=== PATIENT | female | born 1965 | race Two or more races ===

== ENCOUNTER 2024-03-03 16:35 | Emergency (ER) | payer MEDICAID, SELFPAY ==
[2024-03-03 16:36] VITALS: BMI 26.2
[2024-03-03 16:41] VITALS: BP 128/69; PULSE 77; RESP 18; TEMP 36.8; O2SAT 98
--- NOTE | 2024-03-03 16:49 | XR_ITS ---
Examination: PA lateral chest 2 views Technique: Upright PA and lateral chest 2 views Standing time: March 03, 2024 1659 hrs. Comparison February 07, 2023 Indications: Chest pain beginning today. Findings: Normal heart size No current pneumonia or pulmonary edema Stable calcified granuloma in the right upper lobe. Osseous structures are intact Impression: No current pneumonia or pulmonary edema
--- NOTE | 2024-03-03 16:49 | XR_ITS ---
Examination: CT brain head without contrast. 2-D sagittal coronal reconstructions Date and time of exam:March 03, 2024 7005 hours Indications: Onset headaches and dizziness difficulty breathing beginning yesterday. CTDI: vol (mGy):44.9 DLP: (mGycm):796 Technique: Multiple CT axial sections of the brain have been obtained, 5 mm slice thickness. Contrast has not been administered. 2-D sagittal, coronal reconstructions have been obtained Low dose protocols were performed. One or more of the following dose reduction techniques were used; automated exposure control, adjustment of the mA and/or KV according to patient size, use of iterative reconstruction technique. Findings: No significant ventricular enlargement. Intra-axial or extra-axial hemorrhage density is not seen. No mass effect or midline shift Basal cisterns are not remarkable. Fourth ventricle is midline. Cranial vault intact. Impression: Negative for acute hemorrhage, mass effect or midline shift Advise clinical correlation and follow up accordingly.
--- NOTE | 2024-03-03 16:49 | EKG_ITS ---
[facility] Test Date: 2024-03-03 Pat Name: YAJAIRA PATEL Department: Room: - Gender: Female Chief Scientist: : [id number] Requested By: Vic Mark (MARCELA) Order Number: [id number] Reading MD: Vic Mark (WOOD BARKER) Measurements Intervals [place] Rate: 65 P: 17 RI: 120 QRS: -5 QRSD: 88 T: -9 QT: 359 QTc: 374 Interpretive Statements SINUS RHYTHM LOW QRS VOLTAGE IN PRECORDIAL LEADS [QRS DEFLECTION < 1.0 mV IN CHEST LEADS] Compared to ECG 09/16/2021 11:09:16 T-wave abnormality no longer present /store/S0/[id number].pdf
--- NOTE | 2024-03-03 16:50 | PD.EDRME ---
Rapid Medical Screening Exam RME Arrival date/time: 03/03/24 16:35 59-year-old female presents to the emergency department complains of headache and dizziness shortness of breath and back pain Chief Complaint: Shortness of Breath/Dyspnea Time Seen by Provider: 03/03/24 16:47 Vital signs: Vital Signs Temperature 98.2 F 03/03/24 16:41 Pulse Rate 77 03/03/24 16:41 Respiratory Rate 18 03/03/24 16:41 Blood Pressure 128/69 03/03/24 16:41 Pulse Oximetry (%) 98 03/03/24 16:41 Oxygen Delivery Method Room Air 03/03/24 16:41
[2024-03-03 17:16] LABS: Collection Type, Urine Clean Catch
[2024-03-03 17:20] LABS: Basophils # (Auto) 0.1 Thou/mm3 (0.0-0.2); Basophils % (Auto) 1 % (0-2.5); Eosinophils # (Auto) 0.4 Thou/mm3 (0.0-0.5); Eosinophils % (Auto) 5 % (0-10); Hematocrit 44.6 % (36.0-46.0); Hemoglobin 14.8 g/dL (12.0-16.0); Immature Granulocytes % (Auto) 0 % (0-0); Immature Granulocytes Auto 0.02 Thou/mm3 (0.00-0.00); Lymphocytes # (Auto) 2.7 Thou/mm3 (1.0-4.8); Lymphocytes % (Auto) 33 % (10-50); Mean Corpuscular HGB Conc 33.2 g/dl (31.0-37.0); Mean Corpuscular Hemoglobin 29.7 pg (25.0-35.0); Mean Corpuscular Volume 89 fL (80-100); Monocytes # (Auto) 0.6 Thou/mm3 (0.0-0.8); Monocytes % (Auto) 7 % (0-12); Neutrophils # (Auto) 4.4 Thou/mm3 (1.8-7.7); Neutrophils % (Auto) 54 % (37-80); Nucleated Red Blood Cell % 0 /100 WBC (0); Platelet Count 228 Thou/mm3 (140-440); RDW Standard Deviation 43.9 fL (36.4-46.3); Red Blood Count 4.99 Miln/mm3 (4.00-5.20); White Blood Count 8.2 Thou/mm3 (3.6-11.0)
[2024-03-03 17:24] LABS: Bilirubin,Urine Negative (Negative); Blood,Urine Negative (Negative); Clarity,Urine Clear (Clear/Hazy); Color,Urine Lt-Yellow (Lt Yel-Yel); Glucose, Urine Negative (Negative); Ketones,Urine Negative (Negative); Leukocyte Esterase,Urine Positive (Negative); Nitrite,Urine Negative (Negative); Protein,Urine Trace (Neg - Trace); RBC,Urine 3 /hpf (0-3); Squamous Epithelial Cell,Urine 5 /hpf (0-5); Urobilinogen,Urine Negative mg/dL (0.0-1.0); WBC,Urine 8 /hpf (0-5)
[2024-03-03 17:31] LABS: Amphetamine/Methamp Scrn,U Negative (Negative); Barbiturate Screen,Urine Negative (Negative); Benzodiazepines Screen,Urine Negative (Negative); Benzoylecgonine Screen, Ur Negative (Negative); Fentanyl Screen,Urine Negative (Negative); Opiate Screen,Urine Negative (Negative); THC Screen,Urine Negative (Negative)
[2024-03-03 17:41] LABS: B-Type Natriuretic Peptide < 20 pg/mL (0-100)
[2024-03-03 17:46] LABS: Alanine Aminotransferase 15 U/L (10-49); Albumin, Serum 4.7 gm/dL (3.5-5.0); Albumin/Globulin Ratio 1.7 (1.2-2.2); Alkaline Phosphatase 101 U/L (46-116); Anion Gap 5 (7-16); Aspartate Amino Transferase < 8 U/L (0-34); BUN/Creatinine Ratio 21 Ratio (12-20); Bilirubin,Total 0.5 mg/dL (0.3-1.2); Blood Urea Nitrogen 19 mg/dL (9-23); Calcium 9.5 mg/dL (8.3-10.6); Calcium (Corrected) 9.5 mg/dL (8.5-10.1); Carbon Dioxide 31.7 mMol/L (20.0-31.0); Chloride 103 mMol/L (98-107); Creatinine (Component) 0.9 mg/dL (0.6-1.3); Estimated Creatinine Clearance 53.9 mL/min (>60); Globulin 2.8 gm/dL (2.3-3.5); Glucose 89 mg/dL (74-106); Osmolality,Calculated 280 (275-295); Potassium 4.6 mMol/L (3.4-5.1); Sodium 140 mMol/L (136-145); Total Protein 7.5 gm/dL (5.7-8.2); Troponin I < 0.002 ng/mL (0.0-0.045); eGFR > 60 See Note
[2024-03-03 18:11] VITALS: BP 116/74; PULSE 64; RESP 18; TEMP 36.6; O2SAT 100
--- NOTE | 2024-03-03 18:31 | PD.EDSOB ---
ED SOB =RME/HPI General Chief Complaint: Shortness of Breath/Dyspnea Stated Complaint: DIFF BREATHING SINCE YESTERDAY Time Seen by Provider: 03/03/24 16:47 Arrival date/time: 03/03/24 16:35 RME / HPI RME / HPI Narrative: 59-year-old female presents to the emergency department complains of headache and dizziness shortness of breath and back pain everything started yesterday. Severity of symptoms mild. Patient was seen by PCP, for the same complaints, and started on muscle relaxant and naproxen. Patient denies any cough. Denies any other complaints no medications taken prior to arrival Related Data Home Medications ?Medication ?Instructions ?Recorded ?Confirmed omeprazole 20 mg tablet,delayed 20 mg PO QDAY 04/11/19 09/18/20 release paroxetine HCl 20 mg tablet 20 mg PO QDAY 04/11/19 09/18/20 Previous Rx's ?Medication ?Instructions ?Recorded acetaminophen 650 mg 650 mg PO Q8H PRN fever or pain 03/04/21 tablet,extended release #30 tabs acetaminophen 650 mg 650 mg PO Q8H #30 tabs 05/27/21 tablet,extended release (Tylenol Arthritis Pain) cyclobenzaprine 10 mg tablet 10 mg PO HS #10 tabs 09/16/21 psyllium 1 tbsp PO QDAY #300 grams 10/29/21 acetaminophen 500 mg capsule 1,000 mg (2 x 500 mg) PO Q8HR PRN 03/26/22 pain #60 caps acetaminophen 500 mg tablet 1,000 mg (2 x 500 mg) PO Q6H PRN 07/27/22 pain #30 tabs cyclobenzaprine 10 mg tablet 10 mg PO HS PRN muscle spasm #10 07/27/22 tabs albuterol sulfate 90 mcg/actuation 2 inh inhalation Q6H PRN shortness 03/03/24 breath activated powder inhaler of breath or wheezing #1 ea (ProAir RespiClick) Allergies Allergy/AdvReac Type Severity Reaction Status Date / Time hydrocodone Allergy Severe ITCH Verified 03/03/24 16:39 ibuprofen Allergy Severe RASH Verified 03/03/24 16:39 Review of Systems Review of Systems Narrative Review of Systems: Review of system reviewed and within normal limits except mentioned in HPI ED Exam Narrative Physical exam: VITAL SIGNS: Reviewed. GENERAL APPEARANCE: Alert and interactive, follows commands, no acute distress, HEAD AND FACE: Non-traumatic. ENT: PERRL, pink conjunctivitis, eyelid no trauma, Mucous membrane moist. NECK: Supple, nontender, no nuchal rigidity. CHEST: No tenderness, no crepitus, no paradoxical movement, no retractions. LUNGS: Clear, well ventilated, symmetric, no rales, no wheezing, no ronchi, no stridor, good breath sounds bilaterally. HEART: Regular rate, regular rhythm, no murmur, no gallops. ABDOMEN: Soft, positive bowel sounds, nondistended, no guarding, nontender, no rebound, no masses, RECTAL: Deferred. GENITAL: Deferred. NEUROLOGICAL: Gross motor function intact sensory function intact, Appropriate for age. MUSCULOSKELETAL: low back nontender, full range of motion. EXTREMITIES: Nontender, full range of motion. SKIN: Color pink, dry, no rash, no lacerations, no abrasions, no contusions. LYMPHATICS: Deferred. Course Quality Measures none Orders Category Date Time Status EKG (ED ONLY) *Do not use* NOW Care 03/03/24 16:[address] head/brain wo con Stat Exams 03/03/24 16:49 Completed EKG (ED Only) Stat Exams 03/03/24 16:49 Draft XR chest 2V Stat Exams 03/03/24 16:49 Completed B-Type Natriuretic Peptide Stat Lab 03/03/24 16:59 Completed CBC Stat Lab 03/03/24 16:59 Completed Comprehensive Metabolic Panel Stat Lab 03/03/24 16:59 Completed Drug Screen,Urine Stat Lab 03/03/24 17:09 Completed Troponin I Stat Lab 03/03/24 16:59 Completed Urinalysis Stat Lab 03/03/24 17:09 Completed Vital Signs Vital signs: Vital Signs Temperature 98.2 F 03/03/24 16:41 Pulse Rate 77 03/03/24 16:41 Respiratory Rate 18 03/03/24 16:41 Blood Pressure 128/69 03/03/24 16:41 Pulse Oximetry (%) 98 03/03/24 16:41 Oxygen Delivery Method Room Air 03/03/24 16:41 Shortness of Breath / Dyspnea MDM Narrative MDM Narrative:: 59-year-old female presents to the emergency department complains of headache and dizziness shortness of breath and back pain everything started yesterday. Severity of symptoms mild. Patient was seen by PCP, for the same complaints, and started on muscle relaxant and naproxen. Patient denies any cough. Denies any other complaints no medications taken prior to arrival Laboratory workup all came back unremarkable. Cardiac workup also came back normal EKG showed sinus rhythm, no ST segment elevation or depression noted. CT scan of the head came back unremarkable. Chest x-ray also came back unremarkable. Results discussed with the patient. Patient data External records reviewed:: None Clinical information provided by:: patient Social determinants that could affect healthcare access:: none Patient has the following chronic illnesses:: None How is presenting disease/condition affected by chronic disease/condition?: no chronic disease Evaluation data The following diagnostics were reviewed and interpreted by me:: lab results, radiology exam(s) and EKG tracing(s) Lab and/or radiology exams considered but not ordered:: None Interpretation Summary: Laboratory workup all came back unremarkable. Cardiac workup also came back normal EKG showed sinus rhythm, no ST segment elevation or depression noted. CT scan of the head came back unremarkable. Chest x-ray also came back unremarkable. Medications / Prescriptions Medications or Prescriptions considered but not ordered:: None Medication administrations:: None Consultations Consultation(s) initiated? (list below): No Diagnosis Shortness of Breath Differential Diagnosis: community acquired pneumonia and other (Headache, back pain, shortness of breath) Most likely diagnosis given after review of the tests above:: Shortness of breath Admission Indicated Admission indicated?: not indicated Explain why admission is indicated or not indicated:: Stable Admission Request Was there a request for admission?: No Disposition Plan Disposition Plan: Discharge Discharge Attestation Discharge Attestation: The patient was given an opportunity to ask questions and understood the discharge instructions. Discharge instructions specifically effects, indications for sooner follow up or return to the emergency department, and the expected course of current diagnosis. Patient condition: Stable Discharge Plan Plan Patient Disposition: HOME (Self Care) Disposition Comment: stable Prescriptions/Referrals Prescriptions/Med Rec: New ProAir RespiClick 90 mcg/actuation aerosol powdr breath activated 2 inh inhalation Q6H PRN (Reason: shortness of breath or wheezing) Qty: 1 0RF No Action paroxetine HCl 20 mg tablet 20 mg PO QDAY Patient Comments: TAKE ONE TABLET BY MOUTH EVERY MORNING omeprazole 20 mg tablet,delayed release (DR/EC) 20 mg PO QDAY Patient Comments: TAKE ONE TABLET BY MOUTH EVERY DAY HEARTBURN GASTRIC ACIDITY acetaminophen [Tylenol Arthritis Pain] 650 mg tablet extended release 650 mg PO Q8H Qty: 30 0RF acetaminophen 650 mg tablet extended release 650 mg PO Q8H PRN (Reason: fever or pain) Qty: 30 0RF Rx Instructions: swallow whole; do not chew/break/dissolve/open cyclobenzaprine 10 mg tablet 10 mg PO HS Qty: 10 0RF psyllium Powder 1 tbsp PO QDAY Qty: 300 0RF Rx Instructions: mix into at least 8 oz of water or juice before administering acetaminophen 500 mg capsule 1,000 mg PO Q8HR PRN (Reason: pain) Qty: 60 0RF acetaminophen 500 mg tablet 1,000 mg PO Q6H PRN (Reason: pain) Qty: 30 0RF cyclobenzaprine 10 mg tablet 10 mg PO HS PRN (Reason: muscle spasm) Qty: 10 0RF Referrals: Aurea Smith PA-C [Primary Care Provider] - 03/07/24 Problem List Clinical Impression: Shortness of breath Patient/Caregiver Discharge Instructions Discharge Activity: activity as tolerated Education Materials: Shortness of Breath Coping Additional Instructions: Thank you for the opportunity for serving you today. You are stable for discharged . You are advised to: Follow-up with your PCP in 1 to 2 days Return to ED for worsening of symptoms Increase oral fluids Take medication as prescribed by your PCP Print Language: Maltese Stand Alone Forms: [employer] Info., Patient Portal Info Letter
== END 2024-03-03 20:36 | disposition home or self-care (01) ==
PROVIDERS: Nurse Practitioner Primary Care; Emergency Provider Emergency Medicine; PCP Physician Assistant
DX: R06.02 Shortness of breath (principal)
CPT/HCPCS: 36415; 70450; 71046; 80053; 80307; 81001; 83880; 84484; 85025; 93005; 99284

== ENCOUNTER 2024-04-11 17:51 | Emergency (ER) | payer MEDICAID, SELFPAY ==
[2024-04-11 17:52] VITALS: BMI 26.2
[2024-04-11 18:05] VITALS: BP 123/84; PULSE 93; RESP 18; TEMP 37.1; O2SAT 98; BMI 26.2
--- NOTE | 2024-04-11 18:21 | XR_ITS ---
Examination: Foot, left, 3 views Technique: AP, oblique, lateral views foot, 3 views Date and time of exam: April 11, 2024 1822 hrs. Indications: Patient stepped on a nail today with foot pain Findings: Moderate osteopenia. No fracture or dislocation. No opaque foreign body Impression: Negative for opaque foreign body
--- NOTE | 2024-04-11 18:22 | PD.EDRME ---
Rapid Medical Screening Exam RME Arrival date/time: 04/11/24 17:51 59-year-old female presents to the emergency department complaining of left foot pain after stepping on a nail that occurred today. Patient reports visualize nail afterwards. Patient unsure if she is up-to-date with tetanus vaccine. Chief Complaint: Extremity Injury, Lower Time Seen by Provider: 04/11/24 18:06 Vital signs: Vital Signs Temperature 98.7 F 04/11/24 18:05 Pulse Rate 93 04/11/24 18:05 Respiratory Rate 18 04/11/24 18:05 Blood Pressure 123/84 04/11/24 18:05 Pulse Oximetry (%) 98 04/11/24 18:05 Oxygen Delivery Method Room Air 04/11/24 18:05 Vital signs reviewed by provider: Yes
[2024-04-11] MEDS: ACETAMINOPHEN 500 MG TABLET 1000 MG PO (18:58)
[2024-04-11] MEDS: DIPHTH,PERTUSS(ACELL),TET VAC 0.5 ML SYR IMi (18:59)
--- NOTE | 2024-04-11 19:25 | PD.EDLOWEX ---
Lower Extremity Injury RME/HPI General Chief Complaint: Extremity Injury, Lower Stated Complaint: Left foot pain after stepping on nail Time Seen by Provider: 04/11/24 18:06 Source: patient Arrival date/time: 04/11/24 17:51 59-year-old female presents to the emergency department complaining of left foot pain after stepping on a nail that occurred today. Patient reports visualize nail afterwards. Patient unsure if she is up-to-date with tetanus vaccine. Mode of arrival: ambulatory Limitations: no limitations RME / HPI RME / HPI Narrative: 04/11/24 17:51 59-year-old female presents to the emergency department complaining of left foot pain after stepping on a nail that occurred today. Patient reports visualize nail afterwards. Patient unsure if she is up-to-date with tetanus vaccine. Related Data Home Medications ?Medication ?Instructions ?Recorded ?Confirmed omeprazole 20 mg tablet,delayed 20 mg PO QDAY 04/11/19 09/18/20 release paroxetine HCl 20 mg tablet 20 mg PO QDAY 04/11/19 09/18/20 Previous Rx's ?Medication ?Instructions ?Recorded acetaminophen 650 mg 650 mg PO Q8H PRN fever or pain 03/04/21 tablet,extended release #30 tabs acetaminophen 650 mg 650 mg PO Q8H #30 tabs 05/27/21 tablet,extended release (Tylenol Arthritis Pain) cyclobenzaprine 10 mg tablet 10 mg PO HS #10 tabs 09/16/21 psyllium 1 tbsp PO QDAY #300 grams 10/29/21 acetaminophen 500 mg capsule 1,000 mg (2 x 500 mg) PO Q8HR PRN 03/26/22 pain #60 caps acetaminophen 500 mg tablet 1,000 mg (2 x 500 mg) PO Q6H PRN 07/27/22 pain #30 tabs cyclobenzaprine 10 mg tablet 10 mg PO HS PRN muscle spasm #10 07/27/22 tabs albuterol sulfate 90 mcg/actuation 2 inh inhalation Q6H PRN shortness 03/03/24 breath activated powder inhaler of breath or wheezing #1 ea (ProAir RespiClick) acetaminophen 500 mg capsule 500 mg PO Q6H PRN pain #30 caps 04/11/24 amoxicillin 875 mg-potassium 1 tab PO BID 7 days #14 tabs 02/25/25 clavulanate 125 mg tablet Allergies Allergy/AdvReac Type Severity Reaction Status Date / Time hydrocodone Allergy Severe ITCH Verified 03/03/24 16:39 ibuprofen Allergy Severe RASH Verified 03/03/24 16:39 Review of Systems Review of Systems Systems Reviewed: All systems reviewed, normal except as documented Constitutional Constitutional: Reports system reviewed and no additional complaints, except as documented, Denies body ache(s), Denies chills and Denies fever(s) Eyes Eyes: Reports system reviewed and no additional complaints, except as documented and Denies change in vision ENT Ears, Nose, Mouth, and Throat: Reports system reviewed and no additional complaints, except as documented, Denies disequilibrium, Denies dizziness, Denies sore throat and Denies vertigo Cardiovascular Cardiovascular: Reports system reviewed and no additional complaints, except as documented, Denies chest pain and Denies dyspnea Respiratory Respiratory: Reports system reviewed and no additional complaints, except as documented, Denies chest congestion, Denies cough and Denies dyspnea Gastrointestinal Gastrointestinal: Reports system reviewed and no additional complaints, except as documented, Denies abdominal pain, Denies nausea and Denies vomiting Musculoskeletal Musculoskeletal: Reports system reviewed and no additional complaints, except as documented, Denies abnormal gait and Denies arthralgias Integumentary/Breasts Skin/Breast: Reports system reviewed and no additional complaints, except as documented, Denies erythema, Denies rash and Reports wounds Neurologic Neurologic: Reports system reviewed and no additional complaints, except as documented, Denies abnormal gait, Denies disequilibrium, Denies dizziness and Denies vertigo Past Medical History Past Medical History NEUROLOGIC: Negative Neurological Disorders or Seizures CARDIAC: Negative Cardiac Disorders or Congestive Heart Failure RESPIRATORY: Positive Pneumonia; Negative Chronic Obstructive Pulmonary Disease (COPD) or Asthma GASTROINTESTINAL: Positive Gastrointestinal Disorders, Ulcer and Gastroesophageal Reflux Disease GENITOURINARY: Negative Genitourinary Disorders or Renal Disease REPRODUCTIVE: Positive Previous Pregnancies MUSCULOSKELETAL: Positive Musculoskeletal Disorders and Arthritis ENDOCRINE: Negative Endocrine Disorders, Diabetes Mellitus Type 1 or Diabetes Mellitus Type 2 HEMATOLOGIC: Positive Blood Disorders and Anemia; Negative Sickle Cell Disease or Clotting Problems PSYCHO/SOCIAL: Positive Depression OTHER HISTORY: Positive Chicken Pox; Negative Hospitalization, Shingles, Falls, Blood Transfusions, Anesthesia Reactions or Cancer Family History FAMILY HISTORY: Negative Family Respiratory Disorders, Family Cardiac Disorders, Family Cancer or Family Anesthesia Reaction Surgical History SURGICAL: Positive Tubal Ligation and Section Social History SMOKING STATUS: Never smoker SUBSTANCE USE: does not use ED Exam General Limitations: Present no limitations General appearance: Present alert and in no apparent distress Head Head exam: Present atraumatic Eye Eye exam: Present normal appearance, PERRL and EOMI ENT ENT exam: Present normal exam, normal oropharynx and mucous membranes moist Neck Neck exam: Present normal inspection, full ROM and trachea midline Chest Chest inspection: Present normal inspection and symmetric chest wall rise Respiratory Respiratory exam: Present normal lung sounds bilaterally Cardiovascular Cardiovascular exam: Present regular rate, normal rhythm and normal heart sounds Abdominal Exam Abdominal exam: Present soft and normal bowel sounds Extremities Exam Extremities exam: Present normal inspection and full ROM Expanded Lower Extremity Exam Bottom foot image:  1. Small puncture wound no active bleeding or obvious foreign body Neurovascular/Tendon exam: Present normal capillary refill Gait: observed and normal Back Exam Back exam: Present normal inspection and full ROM Neurological Exam Neurological exam: Present alert, oriented X3 and CN II-XII intact Psychiatric Psychiatric exam: Present normal affect and normal mood Skin Skin exam: Present warm, dry, intact and normal color Course Quality Measures none Orders Category Date Time Status Wound Care [Wound Care] NOW Care 04/11/24 18:23 Active XR foot comp LT min 3V Stat Exams 04/11/24 18:21 Completed Acetaminophen Tab [Tylenol ES Tab] Med 04/11/24 18:21 Discontinued 1,000 mg PO X1 ONE Tet,Diphth,Pertuss(Acell)-Tdap [Boostrix Vacc] Med 04/11/24 18:23 Discontinued 0.5 ml IMI .ONCE ONE Vital Signs Vital signs: Vital Signs Temperature 98.7 F 04/11/24 18:05 Pulse Rate 93 04/11/24 18:05 Respiratory Rate 18 04/11/24 18:05 Blood Pressure 123/84 04/11/24 18:05 Pulse Oximetry (%) 98 04/11/24 18:05 Oxygen Delivery Method Room Air 04/11/24 18:05 98% room air with normal limits Extremity Injury, Lower MDM Narrative MDM Narrative:: 59-year-old female presents to the emergency department complaining of left foot pain after stepping on a nail that occurred today. Patient reports visualize nail afterwards. Patient unsure if she is up-to-date with tetanus vaccine. Tetanus vaccine was given. Wound was cleansed and irrigated with normal saline and dressing applied. Patient left lower extremity neurovascularly intact with out any active bleeding. X-ray was unremarkable for any foreign body. Patient will be treated with with prophylactic antibiotics and instructed to have close follow-up with primary care provider and daily foot checks. Patient data External records reviewed:: [facility] previous records Clinical information provided by:: patient Social determinants that could affect healthcare access:: none Patient has the following chronic illnesses:: See chart How is presenting disease/condition affected by chronic disease/condition?: uneffected by Evaluation data The following diagnostics were reviewed and interpreted by me:: radiology exam(s) Lab and/or radiology exams considered but not ordered:: Ordered Interpretation Summary: Interpreted by me Medications / Prescriptions Medications or Prescriptions considered but not ordered:: Ordered Medication administrations:: Medication Administration History Discontinued Medications Acetaminophen (Acetaminophen 500 Mg Tablet) 1,000 mg PO X1 ONE Stop: 04/11/24 18:22 Last Admin: 04/11/24 18:58 Dose: 1,000 mg Documented By: Diphtheria/Tetanus/Acell Pertussis (Diphth,Pertuss(Acell),Tet Vac 0.5 Ml Syr) 0.5 ml IMi .ONCE ONE Stop: 04/11/24 18:24 Last Admin: 04/11/24 18:59 Dose: 0.5 ml Documented By: Given Consultations Consultation(s) initiated? (list below): No Diagnosis Extremity Injury, Lower Differential Diagnosis: puncture wound of foot and other (Foreign body) Most likely diagnosis given after review of the tests above:: Puncture wound to foot Admission Indicated Admission indicated?: not indicated Admission Request Was there a request for admission?: No Disposition Plan Disposition Plan: Discharge Discharge Attestation Discharge Attestation: The patient and all family members were given an opportunity to ask questions and understood the discharge instructions. Discharge instructions specifically effects, indications for sooner follow up or return to the emergency department, and the expected course of current diagnosis. Patient condition: Stable Discharge Plan Plan Patient Disposition: HOME (Self Care) Disposition Comment: Stable Prescriptions/Referrals Prescriptions/Med Rec: New amoxicillin-pot clavulanate 875-125 mg tablet 1 tab PO BID 7 Days Qty: 14 0RF acetaminophen 500 mg capsule 500 mg PO Q6H PRN (Reason: pain) Qty: 30 0RF No Action paroxetine HCl 20 mg tablet 20 mg PO QDAY Patient Comments: TAKE ONE TABLET BY MOUTH EVERY MORNING omeprazole 20 mg tablet,delayed release (DR/EC) 20 mg PO QDAY Patient Comments: TAKE ONE TABLET BY MOUTH EVERY DAY HEARTBURN GASTRIC ACIDITY acetaminophen [Tylenol Arthritis Pain] 650 mg tablet extended release 650 mg PO Q8H Qty: 30 0RF acetaminophen 650 mg tablet extended release 650 mg PO Q8H PRN (Reason: fever or pain) Qty: 30 0RF Rx Instructions: swallow whole; do not chew/break/dissolve/open cyclobenzaprine 10 mg tablet 10 mg PO HS Qty: 10 0RF psyllium Powder 1 tbsp PO QDAY Qty: 300 0RF Rx Instructions: mix into at least 8 oz of water or juice before administering acetaminophen 500 mg capsule 1,000 mg PO Q8HR PRN (Reason: pain) Qty: 60 0RF ProAir RespiClick 90 mcg/actuation aerosol powdr breath activated 2 inh inhalation Q6H PRN (Reason: shortness of breath or wheezing) Qty: 1 0RF acetaminophen 500 mg tablet 1,000 mg PO Q6H PRN (Reason: pain) Qty: 30 0RF cyclobenzaprine 10 mg tablet 10 mg PO HS PRN (Reason: muscle spasm) Qty: 10 0RF Referrals: Aurea Smith PA-C [Primary Care Provider] - In 1 week Problem List Clinical Impression: Puncture wound of foot Patient/Caregiver Discharge Instructions Discharge Activity: activity as tolerated Education Materials: First Aid: Punctures, ED Puncture Wound (General), ED Puncture Wound (Foot) Additional Instructions: Take Tylenol as needed for pain. May wash with warm water and soap. Take antibiotics as prescribed. Daily foot evaluation for monitoring of worsening symptoms of infection. Follow-up with primary care provider in 2 to 3 days. Return to emergency department for any fevers, worsening pain, signs of infection, or as needed. Print Language: Syriac Stand Alone Forms: [employer] Info., Patient Portal Info Letter Vaccines Vaccines Given During Stay: TDaP BELL/DB Supervising Physician TOBI Supervising Physician: Dr. Bosch
== END 2024-04-11 19:36 | disposition home or self-care (01) ==
PROVIDERS: Emergency Provider Emergency Medicine; PCP Physician Assistant
DX: S91.332A Puncture wound without foreign body, left foot, initial encounter (principal); Z23 Encounter for immunization; W45.0XXA Nail entering through skin, initial encounter
CPT/HCPCS: 73630; 90471; 90715; 99283; A9270

== ENCOUNTER 2024-04-24 18:39 | Emergency (ER) | payer MEDICAID, SELFPAY ==
[2024-04-24 18:40] VITALS: BMI 26.2
[2024-04-24 19:56] VITALS: BP 104/70; PULSE 80; RESP 18; TEMP 36.6; O2SAT 97
--- NOTE | 2024-04-24 20:01 | PD.EDRME ---
Rapid Medical Screening Exam RME Arrival date/time: 04/24/24 18:39 59 yo f present to ED for c/o of rectal bleeding. I have greeted and performed a focused initial assessment of this patient. A comprehensive ED assessment and evaluation of the patient, analysis of all test results, and completion of the medical decision making process will be conducted by additional ED providers. Chief Complaint: Urogenital-Female Time Seen by Provider: 04/24/24 19:30 Vital signs: Vital Signs Temperature 98 F 04/24/24 19:56 Pulse Rate 80 04/24/24 19:56 Respiratory Rate 18 04/24/24 19:56 Blood Pressure 104/70 04/24/24 19:56 Pulse Oximetry (%) 97 04/24/24 19:56 Oxygen Delivery Method Room Air 04/24/24 19:56
[2024-04-24 20:54] LABS: Basophils % (Auto) 0 % (0-2.5); Eosinophils # (Auto) 0.3 Thou/mm3 (0.0-0.5); Eosinophils % (Auto) 3 % (0-10); Hematocrit 45.8 % (36.0-46.0); Hemoglobin 15.4 g/dL (12.0-16.0); Immature Granulocytes % (Auto) 0 % (0-0); Immature Granulocytes Auto 0.02 Thou/mm3 (0.00-0.00); Lymphocytes # (Auto) 2.3 Thou/mm3 (1.0-4.8); Lymphocytes % (Auto) 27 % (10-50); Mean Corpuscular HGB Conc 33.6 g/dl (31.0-37.0); Mean Corpuscular Hemoglobin 30.3 pg (25.0-35.0); Mean Corpuscular Volume 90 fL (80-100); Monocytes # (Auto) 0.6 Thou/mm3 (0.0-0.8); Monocytes % (Auto) 7 % (0-12); Neutrophils # (Auto) 5.2 Thou/mm3 (1.8-7.7); Neutrophils % (Auto) 62 % (37-80); Nucleated Red Blood Cell % 0 /100 WBC (0); Platelet Count 199 Thou/mm3 (140-440); RDW Standard Deviation 48.1 fL (36.4-46.3); Red Blood Count 5.09 Miln/mm3 (4.00-5.20); White Blood Count 8.3 Thou/mm3 (3.6-11.0)
[2024-04-24 21:05] LABS: Prothrombin Time 11.4 Seconds (9.0-12.2)
[2024-04-24 21:14] LABS: Alanine Aminotransferase 13 U/L (10-49); Albumin, Serum 4.6 gm/dL (3.5-5.0); Albumin/Globulin Ratio 1.4 (1.2-2.2); Alkaline Phosphatase 83 U/L (46-116); Anion Gap 6 (7-16); BUN/Creatinine Ratio 23 Ratio (12-20); Bilirubin,Total 0.7 mg/dL (0.3-1.2); Blood Urea Nitrogen 21 mg/dL (9-23); Calcium 9.3 mg/dL (8.3-10.6); Calcium (Corrected) 9.3 mg/dL (8.5-10.1); Carbon Dioxide 28.5 mMol/L (20.0-31.0); Chloride 104 mMol/L (98-107); Creatinine (Component) 0.9 mg/dL (0.6-1.3); Estimated Creatinine Clearance 53.9 mL/min (>60); Globulin 3.2 gm/dL (2.3-3.5); Glucose 87 mg/dL (74-106); Osmolality,Calculated 277 (275-295); Potassium 4.1 mMol/L (3.4-5.1); Sodium 138 mMol/L (136-145); Total Protein 7.8 gm/dL (5.7-8.2); eGFR > 60 See Note
[2024-04-24 21:36] LABS: Aspartate Amino Transferase 16 U/L (0-34)
[2024-04-24 21:42] LABS: Collection Type, Urine Voided
[2024-04-24 21:54] LABS: Bacteria,Urine Rare; Bilirubin,Urine Negative (Negative); Blood,Urine Negative (Negative); Clarity,Urine Clear (Clear/Hazy); Color,Urine Yellow (Lt Yel-Yel); Glucose, Urine Negative (Negative); Ketones,Urine 1+ (Negative); Leukocyte Esterase,Urine Positive (Negative); Nitrite,Urine Negative (Negative); Protein,Urine 1+ (Neg - Trace); RBC,Urine 8 /hpf (0-3); Specific Gravity,Urine 1.046 (1.001-1.035); Squamous Epithelial Cell,Urine 3 /hpf (0-5); Urobilinogen,Urine Negative mg/dL (0.0-1.0); WBC,Urine 6 /hpf (0-5)
== END 2024-04-25 01:01 | disposition left against medical advice (07) ==
PROVIDERS: Physician Assistant; Emergency Provider Emergency Medicine
DX: K62.5 Hemorrhage of anus and rectum (principal); Z53.29 Procedure and treatment not carried out because of patient's decision for other reasons
CPT/HCPCS: 36415; 80053; 81001; 85025; 85610; 87077; 87086; 87186; 99281

== ENCOUNTER 2024-05-04 07:42 | Emergency (ER) | payer MEDICAID, SELFPAY ==
[2024-05-04 07:45] VITALS: BMI 26.2
[2024-05-04 08:02] VITALS: BP 120/75; PULSE 74; RESP 16; TEMP 36.9; O2SAT 97; BMI 26.2
--- NOTE | 2024-05-04 08:04 | XR_ITS ---
Examination: CT abdomen and pelvis without contrast. Coronal 3-D reconstructions. Sagittal 2-D reconstructions. Date and time of exam:May 04, 2024 0824 hours Comparison 10/29/2021 CTDI: vol (mGy): 6.27 DLP: (mGycm): 332 Technique: Axial images of the abdomen have been obtained, 3 mm slice thickness Intravenous contrast material has not been administered. Low dose protocols were performed. One or more of the following dose reduction techniques were used; automated exposure control, adjustment of the mA and/or KV according to patient size, use of iterative reconstruction technique. Findings: No focal liver or splenic lesions No gallstones No pancreatic or adrenal mass No renal or ureteral calculi, no hydronephrosis Normal appendix 19 mm fat-containing umbilical hernia Anteverted uterus No adnexal mass Urinary bladder intact Grade 1 spondylolisthesis L5 on S1 with advanced degenerative disc disease at this level IMPRESSION: 19 mm fat-containing umbilical hernia Grade 1 spondylolisthesis L5 on S1 with advanced degenerative disc disease at this level
[2024-05-04] MEDS: FAMOTIDINE 20 MG TABLET PO (08:14)
[2024-05-04 08:29] LABS: Basophils # (Auto) 0.1 Thou/mm3 (0.0-0.2); Basophils % (Auto) 1 % (0-2.5); Eosinophils # (Auto) 0.4 Thou/mm3 (0.0-0.5); Eosinophils % (Auto) 4 % (0-10); Hematocrit 42.4 % (36.0-46.0); Hemoglobin 14.2 g/dL (12.0-16.0); Immature Granulocytes % (Auto) 0 % (0-0); Immature Granulocytes Auto 0.01 Thou/mm3 (0.00-0.00); Lymphocytes % (Auto) 23 % (10-50); Mean Corpuscular HGB Conc 33.5 g/dl (31.0-37.0); Mean Corpuscular Hemoglobin 30.9 pg (25.0-35.0); Mean Corpuscular Volume 92 fL (80-100); Monocytes # (Auto) 0.5 Thou/mm3 (0.0-0.8); Monocytes % (Auto) 6 % (0-12); Neutrophils # (Auto) 5.4 Thou/mm3 (1.8-7.7); Neutrophils % (Auto) 65 % (37-80); Nucleated Red Blood Cell % 0 /100 WBC (0); Platelet Count 197 Thou/mm3 (140-440); RDW Standard Deviation 48.9 fL (36.4-46.3); White Blood Count 8.3 Thou/mm3 (3.6-11.0)
[2024-05-04 08:41] LABS: Collection Type, Urine Clean Catch
[2024-05-04 08:58] LABS: Alanine Aminotransferase < 7 U/L (10-49); Albumin, Serum 4.3 gm/dL (3.5-5.0); Albumin/Globulin Ratio 1.5 (1.2-2.2); Alkaline Phosphatase 74 U/L (46-116); Anion Gap 9 (7-16); Aspartate Amino Transferase 19 U/L (0-34); BUN/Creatinine Ratio 20 Ratio (12-20); Bilirubin,Total 0.8 mg/dL (0.3-1.2); Blood Urea Nitrogen 18 mg/dL (9-23); Calcium 9.6 mg/dL (8.3-10.6); Calcium (Corrected) 9.6 mg/dL (8.5-10.1); Carbon Dioxide 27.5 mMol/L (20.0-31.0); Chloride 108 mMol/L (98-107); Creatinine (Component) 0.9 mg/dL (0.6-1.3); Estimated Creatinine Clearance 53.8 mL/min (>60); Globulin 2.8 gm/dL (2.3-3.5); Glucose 103 mg/dL (74-106); Lipase 37 U/L (12-53); Osmolality,Calculated 288 (275-295); Potassium 4.1 mMol/L (3.4-5.1); Sodium 144 mMol/L (136-145); Total Protein 7.1 gm/dL (5.7-8.2); eGFR > 60 See Note
[2024-05-04 09:00] LABS: Bilirubin,Urine Negative (Negative); Blood,Urine Negative (Negative); Clarity,Urine Clear (Clear/Hazy); Color,Urine Lt-Yellow (Lt Yel-Yel); Glucose, Urine Negative (Negative); Ketones,Urine Negative (Negative); Leukocyte Esterase,Urine Positive (Negative); Nitrite,Urine Negative (Negative); Protein,Urine Negative (Neg - Trace); RBC,Urine 3 /hpf (0-3); Specific Gravity,Urine 1.024 (1.001-1.035); Squamous Epithelial Cell,Urine 2 /hpf (0-5); Urobilinogen,Urine Negative mg/dL (0.0-1.0); WBC,Urine 24 /hpf (0-5)
[2024-05-04 09:01] LABS: Culture Indicated,Urine Yes
--- NOTE | 2024-05-04 10:03 | EDNOTE_ITS ---
ED Abdominal Pain RME/HPI General Chief Complaint: Abdominal Pain Stated complaint: R upper abd pain Time seen by provider: 05/04/24 08:04 Arrival date/time: 05/04/24 07:42 59-year-old female history of ulcers presents emergency department complains of abdominal pain patient ports no fever nausea or vomiting reports pain ongoing x 1 day. Patient reports no chest pain or shortness of breath Limitations: no limitations Related Data Home Medications ?Medication ?Instructions ?Recorded ?Confirmed omeprazole 20 mg tablet,delayed 20 mg PO QDAY 04/11/19 09/18/20 release paroxetine HCl 20 mg tablet 20 mg PO QDAY 04/11/1906/05 Previous Rx's ?Medication ?Instructions ?Recorded acetaminophen 650 mg 650 mg PO Q8H PRN fever or p ain 03/04/21 tablet,extended release #30 tabs acetaminophen 650 mg 650 mg PO Q8H #30 tabs 05/27 tablet,extended release (Tylenol Arthritis Pain) cyclobenzaprine 10 mg tablet 10 mg PO HS #10 tabs 04/08 psyllium 1 tbsp PO QDAY #300 grams acetaminophen 500 mg capsule 1,000 mg (2 x 500 mg) PO Q8HR PRN 03/26/22 pain #60 caps acetaminophen 500 mg tablet 1,000 mg (2 x 500 mg) PO Q 6H PRN 07/27/22 pain #30 tabs cyclobenzaprine 10 mg tablet 10 mg PO HS PRN muscle sp asm #10 07/27/22 tabs albuterol sulfate 90 mcg/actuation 2 inh inhalation Q6 H PRN shortness 03/03/24 breath activated powder inhaler of breath or wheezing #1 ea (ProAir RespiClick) acetaminophen 500 mg capsule 500 mg PO Q6H PRN pain #3 0 caps 04/11/24 ciprofloxacin HCl 500 mg tablet 500 mg PO BID 7 days # 14 tabs 05/04/24 metoclopramide HCl 10 mg tablet 10 mg PO Q6H PRN nause a and 05/04/24 (Reglan) vomiting #30 tabs Allergies Allergy/AdvReac Type Severity Reaction Status Date / Time hydrocodone Allergy Severe ITCH Verified 05/04/24 07:44 ibuprofen Allergy Severe RASH Verified 05/04/24 07:44 Review of Systems Review of Systems Systems Reviewed: All systems reviewed, normal except as documented Constitutional Constitutional: Reports system reviewed and no additional complaints, except as documented, Denies fever(s) and Denies headache(s) Eyes Eyes: Reports system reviewed and no additional complaints, except as documented and Denies blurry vision ENT Ears, Nose, Mouth, and Throat: Reports system reviewed and no additional complaints, except as documented, Denies headache(s), Denies nasal congestion and Denies nasal discharge Cardiovascular Cardiovascular: Reports system reviewed and no additional complaints, except as documented, Denies chest pain and Denies dyspnea Respiratory Respiratory: Reports system reviewed and no additional complaints, except as documented, Denies chest congestion, Denies cough and Denies dyspnea Gastrointestinal Gastrointestinal: Reports system reviewed and no additional complaints, except as documented and Reports abdominal pain Integumentary/Breasts Skin/Breast: Reports system reviewed and no additional complaints, except as documented and Denies rash Neurologic Neurologic: Reports system reviewed and no additional complaints, except as documented, Reports as per HPI and Denies headache(s) Past Medical History Past Medical History NEUROLOGIC: Negative Neurological Disorders or Seizures CARDIAC: Negative Cardiac Disorders or Congestive Heart Failure RESPIRATORY: Positive Pneumonia; Negative Chronic Obstructive Pulmonary Disease (COPD) or Asthma GASTROINTESTINAL: Positive Gastrointestinal Disorders, Ulcer and Gastroesophageal Reflux Disease GENITOURINARY: Negative Genitourinary Disorders or Renal Disease REPRODUCTIVE: Positive Previous Pregnancies MUSCULOSKELETAL: Positive Musculoskeletal Disorders and Arthritis ENDOCRINE: Negative Endocrine Disorders, Diabetes Mellitus Type 1 or Diabetes Mellitus Type 2 HEMATOLOGIC: Positive Blood Disorders and Anemia; Negative Sickle Cell Disease or Clotting Problems PSYCHO/SOCIAL: Positive Depression OTHER HISTORY: Positive Chicken Pox; Negative Hospitalization, Shingles, Falls, Blood Transfusions, Anesthesia Reactions or Cancer Family History FAMILY HISTORY: Negative Family Respiratory Disorders, Family Cardiac Disorders, Family Cancer or Family Anesthesia Reaction Surgical History SURGICAL: Positive Tubal Ligation and Section Social History SMOKING STATUS: Never smoker SUBSTANCE USE: does not use ED Exam General Limitations: Present no limitations General appearance: Present alert and in no apparent distress Head Head exam: Present atraumatic Eye Eye exam: Present normal appearance, PERRL and EOMI; Absent conjunctival injection ENT ENT exam: Present normal exam, normal oropharynx and mucous membranes moist Neck Neck exam: Present normal inspection, full ROM and trachea midline Chest Chest inspection: Present normal inspection and symmetric chest wall rise Respiratory Respiratory exam: Present normal lung sounds bilaterally; Absent respiratory distress or wheezes Cardiovascular Cardiovascular exam: Present regular rate, normal rhythm and normal heart sounds Abdominal Exam Abdominal exam: Present soft and normal bowel sounds; Absent distention, tenderness, guarding, rebound or rigidity Extremities Exam Extremities exam: Present normal inspection and full ROM Back Exam Back exam: Present normal inspection and full ROM Neurological Exam Neurological exam: Present alert, oriented X3 and CN II-XII intact Psychiatric Psychiatric exam: Present normal affect and normal mood Skin Skin exam: Present warm, dry, intact and normal color Course Quality Measures none Orders Category Date Time Status CT abdomen pelvis wo con Stat Exams 05/04/24 08:04 Completed CBC Stat Lab 05/04/24 08:15 Completed Comprehensive Metabolic Panel Stat Lab 05/04/24 08:15 Completed Lipase Stat Lab 05/04/24 08:15 Completed UA, C/S IF [Urinalysis, C/S if Indicated] Stat Lab 05/04/24 08:25 Completed Urine Culture Stat Lab 05/04/24 08:25 Received Famotidine [Pepcid] Med 05/04/24 08:05 Discontinued 20 mg PO X1 ONE Lidocaine 2% Viscous [Xylocaine 2% Viscous] Med 05/04/24 08:05 Discontinued 15 ml PO X1 ONE mg Hyd/Al Hyd/Carmen Susp [Maalox Susp] Med 05/04/24 08:05 Discontinued 30 ml PO X1 ONE Vital Signs Vital signs: Vital Signs Temperature 98.4 F 05/04/24 08:02 Pulse Rate 74 05/04/24 08:02 Respiratory Rate 16 05/04/24 08:02 Blood Pressure 120/75 05/04/24 08:02 Pulse Oximetry (%) 97 05/04/24 08:02 Oxygen Delivery Method Room Air 05/04/24 08:02 O2 saturation 97% room air WNL Abdominal Pain MDM MDM Narrative MDM Narrative:: 59-year-old female history of ulcers presents emergency department complains of abdominal pain patient ports no fever nausea or vomiting reports pain ongoing x 1 day. Patient reports no chest pain or shortness of breath On exam patient well-appearing patient does not appear ill or toxic patient does not appear in acute distress Lab work and imaging obtained no acute emergent findings noted Patient discharged home in no distress to follow-up with primary care doctor in the next 24 to 48 hours and for any worsening symptoms to return to the ER immediately Patient data External records reviewed:: [facility] previous records Clinical information provided by:: patient Social determinants that could affect healthcare access:: none Patient has the following chronic illnesses:: None How is presenting disease/condition affected by chronic disease/condition?: no chronic disease Evaluation data The following diagnostics were reviewed and interpreted by me:: lab results and radiology exam(s) Lab and/or radiology exams considered but not ordered:: Lab and radiology obtained Interpretation Summary: Reviewed by me Medications / Prescriptions Medications or Prescriptions considered but not ordered:: Given Medication administrations:: Medication Administration History Discontinued Medications Al Hydrox/Mg Hydrox/Simethicone (Mg Hyd/Al Hyd/Carmen (Maalox Reg) Susp 30 Ml Udc) 30 ml PO X1 ONE Stop: 05/04/24 08:06 Last Admin: 05/04/24 08:16 Dose: Not Given Documented By: JERZY Non-Admin Reason: Patient Refused Famotidine (Famotidine 20 Mg Tablet) 20 mg PO X1 ONE Stop: 05/04/24 08:06 Last Admin: 05/04/24 08:14 Dose: 20 mg Documented By: JERZY Lidocaine HCl (Lidocaine Viscous 2% 15 Ml Udc) 15 ml PO X1 ONE Stop: 05/04/24 08:06 Last Admin: 05/04/24 08:16 Dose: Not Given Documented By: JERZY Non-Admin Reason: Patient Refused Given Consultations Consultation(s) initiated? (list below): No Diagnosis Differential diagnosis abdominal pain: abdominal pain, acute appendicitis and pancreatitis Most likely diagnosis given after review of the tests above:: Abdominal pain Admission Indicated Admission indicated?: not indicated Admission Request Was there a request for admission?: No Disposition Plan Disposition Plan: Discharge Discharge Attestation Discharge Attestation: The patient and all family members were given an opportunity to ask questions and understood the discharge instructions. Discharge instructions specifically effects, indications for sooner follow up or return to the emergency department, and the expected course of current diagnosis. Patient condition: Stable Discharge Plan Plan Patient Disposition: HOME (Self Care) Disposition Comment: Stable Prescriptions/Referrals Prescriptions/Med Rec: New ciprofloxacin HCl 500 mg tablet 500 mg PO BID 7 Days Qty: 14 0RF metoclopramide HCl [Reglan] 10 mg tablet 10 mg PO Q6H PRN (Reason: nausea and vomiting) Qty: 30 0RF No Action paroxetine HCl 20 mg tablet 20 mg PO QDAY Patient Comments: TAKE ONE TABLET BY MOUTH EVERY MORNING omeprazole 20 mg tablet,delayed release (DR/EC) 20 mg PO QDAY Patient Comments: TAKE ONE TABLET BY MOUTH EVERY DAY HEARTBURN GASTRIC ACIDITY acetaminophen [Tylenol Arthritis Pain] 650 mg tablet extended release 650 mg PO Q8H Qty: 30 0RF acetaminophen 650 mg tablet extended release 650 mg PO Q8H PRN (Reason: fever or pain) Qty: 30 0RF Rx Instructions: swallow whole; do not chew/break/dissolve/open cyclobenzaprine 10 mg tablet 10 mg PO HS Qty: 10 0RF psyllium Powder 1 tbsp PO QDAY Qty: 300 0RF Rx Instructions: mix into at least 8 oz of water or juice before administering acetaminophen 500 mg capsule 1,000 mg PO Q8HR PRN (Reason: pain) Qty: 60 0RF ProAir RespiClick 90 mcg/actuation aerosol powdr breath activated 2 inh inhalation Q6H PRN (Reason: shortness of breath or wheezing) Qty: 1 0RF acetaminophen 500 mg capsule 500 mg PO Q6H PRN (Reason: pain) Qty: 30 0RF acetaminophen 500 mg tablet 1,000 mg PO Q6H PRN (Reason: pain) Qty: 30 0RF cyclobenzaprine 10 mg tablet 10 mg PO HS PRN (Reason: muscle spasm) Qty: 10 0RF Referrals: Aurea Smith PA-C [Primary Care Provider] - In 1 week Problem List Clinical Impression: Abdominal pain, UTI (urinary tract infection) Patient/Caregiver Discharge Instructions Education Materials: Abdominal Pain Additional Instructions: Please follow up with your primary care doctor in the next 24-48hrs for any worsening symptoms return here immediately Print Language: Guatemalan Stand Alone Forms: Mary Award Info., Patient Portal Info Letter PA/DB Supervising Physician PA/DB Supervising Physician: dr ragsdale
== END 2024-05-04 10:21 | disposition home or self-care (01) ==
PROVIDERS: Nurse Practitioner Primary Care; Emergency Provider Emergency Medicine; PCP Physician Assistant
DX: N39.0 Urinary tract infection, site not specified (principal); R10.11 Right upper quadrant pain
CPT/HCPCS: 36415; 74176; 80053; 81001; 83690; 85025; 87086; 99284; A9270

== ENCOUNTER 2024-06-01 16:34 | Emergency (ER) | payer MEDICAID, SELFPAY ==
[2024-06-01 17:41] VITALS: BP 119/58; PULSE 59; RESP 16; TEMP 36.7; O2SAT 97; BMI 26.2
--- NOTE | 2024-06-01 17:53 | XR_ITS ---
Examination: Wrist, left 3 views Technique: Wrist AP, oblique, lateral 3 views Date and time of exam: June 01, 2024 1759 hrs. Indications: Sudden onset wrist pain beginning 2 days ago. Findings: No fracture or dislocation No erosive or other significant arthritic change Impression: No fracture or dislocation
--- NOTE | 2024-06-01 17:55 | PD.EDRME ---
Rapid Medical Screening Exam RME Arrival date/time: 06/01/24 16:34 59-year-old female presents to the emergency department with complaints of left wrist pain. No injury. I have greeted and performed a focused initial assessment of this patient. Initial appropriate labs ordered at this time. A comprehensive ED assessment and evaluation of the patient and analysis of all test and completion of medical decision making process will be conducted by additional ED provider. Chief Complaint: Hand/Wrist Problems Time Seen by Provider: 06/01/24 16:42 Vital signs: Vital Signs Temperature 98.1 F 06/01/24 17:41 Pulse Rate 59 L 06/01/24 17:41 Respiratory Rate 16 06/01/24 17:41 Blood Pressure 119/58 L 06/01/24 17:41 Pulse Oximetry (%) 97 06/01/24 17:41 Oxygen Delivery Method Room Air 06/01/24 17:41
--- NOTE | 2024-06-01 22:02 | PC.NURSE ---
PROVIDER CALLED PATIENT IN THE LOBBY, STAFF CALLED PATIENT IN THE LOBBY AND OUTSIDE, NO ANSWER RECEIVED.
--- NOTE | 2024-06-01 23:02 | PC.NURSE ---
CALLED PATIENT IN THE LOBBY AND OUTSIDE, NO ANSWER RECEIVED.
--- NOTE | 2024-06-01 23:34 | PC.NURSE ---
CALLED PATIENT IN THE LOBBY AND OUTSIDE, NO ANSWER RECEIVED.
== END 2024-06-01 23:35 | disposition left against medical advice (07) ==
PROVIDERS: Emergency Provider Emergency Medicine; PCP Physician Assistant
DX: M25.532 Pain in left wrist (principal); Z53.29 Procedure and treatment not carried out because of patient's decision for other reasons
CPT/HCPCS: 73110; 99281

== ENCOUNTER 2024-08-01 16:08 | Emergency (ER) | payer MEDICAID, SELFPAY ==
[2024-08-01 16:14] VITALS: PULSE 68; O2SAT 96
[2024-08-01 16:17] VITALS: BMI 26.2
--- NOTE | 2024-08-01 16:17 | XR_ITS ---
Examination: AP chest single view TECHNIQUE: AP portable upright chest single view Date and time: August 01, 2024 1642 hours Comparison August 31, 2024 INDICATION: Chest pain shortness of breath today. FINDINGS: No significant cardiac enlargement No lumbar pneumonia or pulmonary edema. Moderate osteopenia IMPRESSION: No lobar pneumonia or pulmonary edema
--- NOTE | 2024-08-01 16:17 | EKG_ITS ---
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
--- NOTE | 2024-08-01 16:19 | PD.EDCHEST ---
ED Chest Pain RME/HPI General Chief Complaint: Chest Pain Stated Complaint: CHEST PAIN Time Seen by Provider: 08/01/24 16:16 Arrival date/time: 08/01/24 16:08 RME / HPI RME / HPI narrative: 59-year-old female with a history of gastritis is here today with a 30-minute history of lower chest pain. She states this feels different than her acid reflux. She denies any chronic medical conditions. Has no history of hypertension, diabetes, or any cardiopulmonary disease. Twelve-lead EKG was obtained and reviewed by EMS, there is nonspecific, inferior T wave changes. Related Data Home Medications ?Medication ?Instructions ?Recorded ?Confirmed omeprazole 20 mg tablet,delayed 20 mg PO QDAY 04/11/19 09/18/20 release paroxetine HCl 20 mg tablet 20 mg PO QDAY 04/11/19 09/18/20 Previous Rx's ?Medication ?Instructions ?Recorded acetaminophen 650 mg 650 mg PO Q8H PRN fever or pain 03/04/21 tablet,extended release #30 tabs acetaminophen 650 mg 650 mg PO Q8H #30 tabs 05/27/21 tablet,extended release (Tylenol Arthritis Pain) cyclobenzaprine 10 mg tablet 10 mg PO HS #10 tabs 09/16/21 psyllium 1 tbsp PO QDAY #300 grams 10/29/21 acetaminophen 500 mg capsule 1,000 mg (2 x 500 mg) PO Q8HR PRN 03/26/22 pain #60 caps acetaminophen 500 mg tablet 1,000 mg (2 x 500 mg) PO Q6H PRN 07/27/22 pain #30 tabs cyclobenzaprine 10 mg tablet 10 mg PO HS PRN muscle spasm #10 07/27/22 tabs albuterol sulfate 90 mcg/actuation 2 inh inhalation Q6H PRN shortness 03/03/24 breath activated powder inhaler of breath or wheezing #1 ea (ProAir RespiClick) acetaminophen 500 mg capsule 500 mg PO Q6H PRN pain #30 caps 04/11/24 metoclopramide HCl 10 mg tablet 10 mg PO Q6H PRN nausea and 05/04/24 (Reglan) vomiting #30 tabs Allergies Allergy/AdvReac Type Severity Reaction Status Date / Time hydrocodone Allergy Severe ITCH Verified 08/01/24 16:17 ibuprofen Allergy Severe RASH Verified 08/01/24 16:17 Course Quality Measures none Orders Category Date Time Status EKG (ED ONLY) *Do not use* NOW Care 08/01/24 16:17 Completed EKG (ED Only) Stat Exams 08/01/24 16:17 Draft XR chest 1V Stat Exams 08/01/24 16:17 Completed BNP [B-Type Natriuretic Peptide] Stat Lab 08/01/24 16:31 Completed CBC Stat Lab 08/01/24 16:31 Completed CMP [Comprehensive Metabolic Panel] Stat Lab 08/01/24 16:31 Completed Troponin I Stat Lab 08/01/24 16:31 Completed Troponin I Stat Lab 08/01/24 18:59 Completed Aspirin [Ecotrin] Med 08/01/24 16:20 Discontinued 162 mg PO X1 ONE mg Hyd/Al Hyd/Carmen Susp [Maalox Susp] Med 08/01/24 17:26 Discontinued 30 ml PO X1 ONE Vital Signs Vital signs: Vital Signs Temperature 98.2 F 08/01/24 16:26 Pulse Rate 66 08/01/24 16:26 Respiratory Rate 18 08/01/24 16:26 Blood Pressure 129/68 08/01/24 16:26 Pulse Oximetry (%) 97 08/01/24 16:26 Oxygen Delivery Method Room Air 08/01/24 16:26 Chest Pain MDM Narrative MDM Narrative:: 59-year-old female is here to have chest pain. She has no history of ACS or thrombus. This started 30 minutes prior to arrival. Patient was monitored throughout the ER course. Serial exams were performed including repeat troponin. Workup essentially unremarkable with exception nonspecific T wave changes on EKG. Repeat troponins are reassuring. Patient be discharged to home for outpatient follow-up. We discussed return precautions. She agrees to return as needed for any worsening or emergent changes. Patient data External records reviewed:: [facility] previous records Clinical information provided by:: patient Social determinants that could affect healthcare access:: none Patient has the following chronic illnesses:: GERD How is presenting disease/condition affected by chronic disease/condition?: uneffected by Evaluation data The following diagnostics were reviewed and interpreted by me:: lab results, radiology exam(s) and EKG tracing(s) Lab and/or radiology exams considered but not ordered:: n/A Interpretation Summary: Repeat troponins are unremarkable. Medications / Prescriptions Medications or Prescriptions considered but not ordered:: n/a Medication administrations:: Medication Administration History Discontinued Medications Al Hydrox/Mg Hydrox/Simethicone (Mg Hyd/Al Hyd/Carmen (Maalox Reg) Susp 30 Ml Udc) 30 ml PO X1 ONE Stop: 08/01/24 17:27 Last Admin: 08/01/24 18:01 Dose: 30 ml Documented By: VG Aspirin (Aspirin Ec 81 Mg Tabec) 162 mg PO X1 ONE Stop: 08/01/24 16:21 Last Admin: 08/01/24 16:42 Dose: 162 mg Documented By: DO See above Consultations Consultation(s) initiated? (list below): No Diagnosis Chest Pain Differential Diagnosis: pneumothorax, stable angina, unstable angina pectoris, atypical chest pain and st elevation myocardial infarction Most likely diagnosis given after review of the tests above:: Noncardiac related chest pain Admission Indicated Admission indicated?: not indicated Admission Request Was there a request for admission?: No Disposition Plan Disposition Plan: Discharge Discharge Attestation Discharge Attestation: The patient and all family members were given an opportunity to ask questions and understood the discharge instructions. Discharge instructions specifically effects, indications for sooner follow up or return to the emergency department, and the expected course of current diagnosis. Patient condition: Stable Discharge Plan Plan Patient Disposition: HOME (Self Care) Patient condition on transfer: Stable Prescriptions/Referrals Prescriptions/Med Rec: No Action paroxetine HCl 20 mg tablet 20 mg PO QDAY Patient Comments: TAKE ONE TABLET BY MOUTH EVERY MORNING omeprazole 20 mg tablet,delayed release (DR/EC) 20 mg PO QDAY Patient Comments: TAKE ONE TABLET BY MOUTH EVERY DAY HEARTBURN GASTRIC ACIDITY acetaminophen [Tylenol Arthritis Pain] 650 mg tablet extended release 650 mg PO Q8H Qty: 30 0RF acetaminophen 650 mg tablet extended release 650 mg PO Q8H PRN (Reason: fever or pain) Qty: 30 0RF Rx Instructions: swallow whole; do not chew/break/dissolve/open cyclobenzaprine 10 mg tablet 10 mg PO HS Qty: 10 0RF psyllium Powder 1 tbsp PO QDAY Qty: 300 0RF Rx Instructions: mix into at least 8 oz of water or juice before administering acetaminophen 500 mg capsule 1,000 mg PO Q8HR PRN (Reason: pain) Qty: 60 0RF ProAir RespiClick 90 mcg/actuation aerosol powdr breath activated 2 inh inhalation Q6H PRN (Reason: shortness of breath or wheezing) Qty: 1 0RF acetaminophen 500 mg capsule 500 mg PO Q6H PRN (Reason: pain) Qty: 30 0RF metoclopramide HCl [Reglan] 10 mg tablet 10 mg PO Q6H PRN (Reason: nausea and vomiting) Qty: 30 0RF acetaminophen 500 mg tablet 1,000 mg PO Q6H PRN (Reason: pain) Qty: 30 0RF cyclobenzaprine 10 mg tablet 10 mg PO HS PRN (Reason: muscle spasm) Qty: 10 0RF Referrals: Aurea Smith PA-C [Primary Care Provider] - In 1 week Problem List Clinical Impression: Chest pain Patient/Caregiver Discharge Instructions Education Materials: ED Chest Pain, Uncertain Cause Additional Instructions: Your cardiac enzymes today were normal during repeat studies. Please contact your primary doctor to schedule close follow-up appointment. Return here for any worsening emergent changes. Print Language: Slovak Stand Alone Forms: Mary Award Info., Patient Portal Info Letter
[2024-08-01 16:26] VITALS: BP 129/68; PULSE 66; RESP 18; TEMP 36.8; O2SAT 97
--- NOTE | 2024-08-01 16:30 | PC.NURSE ---
Patient to er via ems from home with c/o non radiating upper mid chest pain and dizziness that started approx. 1 hr before coming to the er, patient denies n/vomitting, slightly sob, skin warm dry and pink, patient states she has been worried about an argument she got into a few days ago with her daughter and she has not been able to stop thinking about it, skin is warm dry and pink, SR on the CM, VSS, chart up to be seen by er provider, call light within reach.
[2024-08-01 16:39] LABS: Basophils % (Auto) 1 % (0-2.5); Eosinophils # (Auto) 0.1 Thou/mm3 (0.0-0.5); Eosinophils % (Auto) 2 % (0-10); Hematocrit 41.6 % (36.0-46.0); Hemoglobin 13.7 g/dL (12.0-16.0); Immature Granulocytes % (Auto) 0 % (0-0); Immature Granulocytes Auto 0.02 Thou/mm3 (0.00-0.00); Lymphocytes # (Auto) 1.7 Thou/mm3 (1.0-4.8); Lymphocytes % (Auto) 25 % (10-50); Mean Corpuscular HGB Conc 32.9 g/dl (31.0-37.0); Mean Corpuscular Volume 94 fL (80-100); Monocytes # (Auto) 0.4 Thou/mm3 (0.0-0.8); Monocytes % (Auto) 6 % (0-12); Neutrophils # (Auto) 4.5 Thou/mm3 (1.8-7.7); Neutrophils % (Auto) 66 % (37-80); Nucleated Red Blood Cell % 0 /100 WBC (0); Platelet Count 184 Thou/mm3 (140-440); RDW Standard Deviation 47.6 fL (36.4-46.3); Red Blood Count 4.42 Miln/mm3 (4.00-5.20); White Blood Count 6.7 Thou/mm3 (3.6-11.0)
[2024-08-01] MEDS: ASPIRIN EC 81 MG TABEC 162 MG PO (16:42)
[2024-08-01 17:00] LABS: B-Type Natriuretic Peptide 24 pg/mL (0-100)
[2024-08-01 17:03] LABS: Alanine Aminotransferase 11 U/L (10-49); Albumin, Serum 4.2 gm/dL (3.5-5.0); Albumin/Globulin Ratio 1.7 (1.2-2.2); Alkaline Phosphatase 87 U/L (46-116); Anion Gap 7 (7-16); Aspartate Amino Transferase 13 U/L (0-34); BUN/Creatinine Ratio 9 Ratio (12-20); Bilirubin,Total 0.7 mg/dL (0.3-1.2); Blood Urea Nitrogen 8 mg/dL (9-23); Calcium 9.1 mg/dL (8.3-10.6); Calcium (Corrected) 9.1 mg/dL (8.5-10.1); Chloride 107 mMol/L (98-107); Creatinine (Component) 0.9 mg/dL (0.6-1.3); Estimated Creatinine Clearance 53.9 mL/min (>60); Globulin 2.5 gm/dL (2.3-3.5); Glucose 92 mg/dL (74-106); Osmolality,Calculated 281 (275-295); Potassium 3.9 mMol/L (3.4-5.1); Sodium 142 mMol/L (136-145); Total Protein 6.7 gm/dL (5.7-8.2); Troponin I < 0.002 ng/mL (0.0-0.045); eGFR > 60 See Note
[2024-08-01] MEDS: MG HYD/AL HYD/SIME (Maalox Reg) SUSP 30 ML UDC PO (18:01)
[2024-08-01 18:14] VITALS: BP 125/66; PULSE 60; RESP 16; TEMP 36.8; O2SAT 97
[2024-08-01 19:47] LABS: Troponin I < 0.002 ng/mL (0.0-0.045)
[2024-08-01 21:07] VITALS: BP 124/88; PULSE 60; RESP 18; TEMP 36.7; O2SAT 99
== END 2024-08-01 21:10 | disposition home or self-care (01) ==
PROVIDERS: Physician Assistant Medical; Emergency Provider Family Medicine; PCP Physician Assistant
DX: R07.9 Chest pain, unspecified (principal); R94.31 Abnormal electrocardiogram [ECG] [EKG]
CPT/HCPCS: 36415; 71045; 80053; 83880; 84484; 85025; 93005; 99283; A9270

== ENCOUNTER 2024-09-28 17:01 | Emergency (ER) | payer MEDICAID, SELFPAY ==
[2024-09-28 17:05] VITALS: BP 134/72; PULSE 78; RESP 18; TEMP 37; O2SAT 98
[2024-09-28 17:06] VITALS: BMI 24.2
--- NOTE | 2024-09-28 17:12 | EKG_ITS ---
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
--- NOTE | 2024-09-28 17:16 | XR_ITS ---
Examination: PA chest single view TECHNIQUE: Upright PA chest single view Date and time: September 28, 2024, 1916 hours Comparison August 01, 2024. INDICATIONS: Chest measures about today. FINDINGS: Normal heart size Suspicious for early pneumonia left base The osseous structures are intact No pulmonary edema IMPRESSION: Suspicious for early pneumonia left base
--- NOTE | 2024-09-28 17:16 | XR_ITS ---
Examination: Abdomen sonogram, Limited Date and time of exam: September 28, 2024 1944 hours INDICATIONS: Epigastric pain and chest pain beginning 3 hours ago Technique: Real-time more scale transabdominal sonographic images of the upper abdomen obtained. Findings: Normal gallbladder. Normal common bile duct 0.4 cm. Pancreatic head 2.0 cm Liver 12.9 cm fatty infiltration no focal liver lesions. Normal hepatopedal portal venous flow. Patent IVC. IMPRESSION: Normal gallbladder Fatty infiltration throughout the liver
--- NOTE | 2024-09-28 17:18 | PD.EDADULT ---
ED General RME/HPI General Chief complaint: Arrhythmia/Palpitations Stated complaint: CHEST PAIN Time Seen by Provider: 09/28/24 17:13 Arrival date/time: 09/28/24 17:01 RME / HPI RME / HPI narrative: 59-year-old female patient with no significant past medical history, came in for evaluation regarding epigastric pain. Onset of symptoms since 3 hours ago as sudden onset of burning-like sensation epigastric pain, radiating to the substernal area, severity moderate. Denies any cough denies any vomiting denies any fever denies any complaints no medications taken prior to ER visit. Related Data Home Medications ?Medication ?Instructions ?Recorded ?Confirmed omeprazole 20 mg tablet,delayed 20 mg PO QDAY 04/11/19 09/18/20 release paroxetine HCl 20 mg tablet 20 mg PO QDAY 04/11/19 09/18/20 Previous Rx's ?Medication ?Instructions ?Recorded acetaminophen 650 mg 650 mg PO Q8H PRN fever or pain 03/04/21 tablet,extended release #30 tabs acetaminophen 650 mg 650 mg PO Q8H #30 tabs 05/27/21 tablet,extended release (Tylenol Arthritis Pain) cyclobenzaprine 10 mg tablet 10 mg PO HS #10 tabs 09/16/21 psyllium 1 tbsp PO QDAY #300 grams 10/29/21 acetaminophen 500 mg capsule 1,000 mg (2 x 500 mg) PO Q8HR PRN 03/26/22 pain #60 caps acetaminophen 500 mg tablet 1,000 mg (2 x 500 mg) PO Q6H PRN 07/27/22 pain #30 tabs cyclobenzaprine 10 mg tablet 10 mg PO HS PRN muscle spasm #10 07/27/22 tabs albuterol sulfate 90 mcg/actuation 2 inh inhalation Q6H PRN shortness 03/03/24 breath activated powder inhaler of breath or wheezing #1 ea (ProAir RespiClick) acetaminophen 500 mg capsule 500 mg PO Q6H PRN pain #30 caps 04/11/24 metoclopramide HCl 10 mg tablet 10 mg PO Q6H PRN nausea and 05/04/24 (Reglan) vomiting #30 tabs famotidine 20 mg tablet (Pepcid) 20 mg PO BID #14 tabs 09/28/24 Allergies Allergy/AdvReac Type Severity Reaction Status Date / Time hydrocodone Allergy Severe ITCH Verified 09/28/24 18:31 ibuprofen Allergy Severe RASH Verified 09/28/24 18:31 Review of Systems Review of Systems Narrative Review of Systems: Review of system reviewed and within normal limits except mentioned in HPI ED Exam Narrative Physical exam: VITAL SIGNS: Reviewed. GENERAL APPEARANCE: Alert and interactive, follows commands, no acute distress, HEAD AND FACE: Non-traumatic. ENT: PERRL, pink conjunctivitis, eyelid no trauma, Mucous membrane moist. NECK: Supple, nontender, no nuchal rigidity. CHEST: No tenderness, no crepitus, no paradoxical movement, no retractions. LUNGS: Clear, well ventilated, symmetric, no rales, no wheezing, no ronchi, no stridor, good breath sounds bilaterally. HEART: Regular rate, regular rhythm, no murmur, no gallops. ABDOMEN: Soft, positive bowel sounds, nondistended, no guarding, epigastric tenderness, no rebound, no masses, RECTAL: Deferred. GENITAL: Deferred. NEUROLOGICAL: Gross motor function intact sensory function intact, Appropriate for age. MUSCULOSKELETAL: low back nontender, full range of motion. EXTREMITIES: Nontender, full range of motion. SKIN: Color pink, dry, no rash, no lacerations, no abrasions, no contusions. LYMPHATICS: Deferred. Course Quality Measures none Orders Category Date Time Status EKG (ED ONLY) *Do not use* NOW Care 09/28/24 17:12 Active EKG (ED Only) Stat Exams 09/28/24 17:12 Draft US gall bladder Stat Exams 09/28/24 17:16 Completed XR chest 1V Stat Exams 09/28/24 17:16 Completed B-Type Natriuretic Peptide Stat Lab 09/28/24 17:57 Completed CBC Stat Lab 09/28/24 17:57 Completed Comprehensive Metabolic Panel Stat Lab 09/28/24 17:57 Completed Partial Thromboplastin Time Stat Lab 09/28/24 17:57 Completed Troponin I Stat Lab 09/28/24 17:57 Completed Acetaminophen Tab [Tylenol ES Tab] Med 09/28/24 19:46 Discontinued 1,000 mg PO X1 ONE Famotidine [Pepcid] Med 09/28/24 19:46 Discontinued 40 mg PO X1 ONE mg Hyd/Al Hyd/Carmen Susp [Maalox Susp] Med 09/28/24 17:16 Discontinued 30 ml PO X1 ONE Vital Signs Vital signs: Vital Signs Temperature 98.6 F 09/28/24 17:05 Pulse Rate 78 09/28/24 17:05 Respiratory Rate 18 09/28/24 17:05 Blood Pressure 134/72 H 09/28/24 17:05 Pulse Oximetry (%) 98 09/28/24 17:05 Oxygen Delivery Method Room Air 09/28/24 17:05 Discharge Plan Plan Patient Disposition: HOME (Self Care) Discharge Disposition comment: stable Prescriptions/Referrals Prescriptions/Med Rec: New famotidine [Pepcid] 20 mg tablet 20 mg PO BID Qty: 14 0RF No Action paroxetine HCl 20 mg tablet 20 mg PO QDAY Patient Comments: TAKE ONE TABLET BY MOUTH EVERY MORNING omeprazole 20 mg tablet,delayed release (DR/EC) 20 mg PO QDAY Patient Comments: TAKE ONE TABLET BY MOUTH EVERY DAY HEARTBURN GASTRIC ACIDITY acetaminophen [Tylenol Arthritis Pain] 650 mg tablet extended release 650 mg PO Q8H Qty: 30 0RF acetaminophen 650 mg tablet extended release 650 mg PO Q8H PRN (Reason: fever or pain) Qty: 30 0RF Rx Instructions: swallow whole; do not chew/break/dissolve/open cyclobenzaprine 10 mg tablet 10 mg PO HS Qty: 10 0RF psyllium Powder 1 tbsp PO QDAY Qty: 300 0RF Rx Instructions: mix into at least 8 oz of water or juice before administering acetaminophen 500 mg capsule 1,000 mg PO Q8HR PRN (Reason: pain) Qty: 60 0RF ProAir RespiClick 90 mcg/actuation aerosol powdr breath activated 2 inh inhalation Q6H PRN (Reason: shortness of breath or wheezing) Qty: 1 0RF acetaminophen 500 mg capsule 500 mg PO Q6H PRN (Reason: pain) Qty: 30 0RF metoclopramide HCl [Reglan] 10 mg tablet 10 mg PO Q6H PRN (Reason: nausea and vomiting) Qty: 30 0RF acetaminophen 500 mg tablet 1,000 mg PO Q6H PRN (Reason: pain) Qty: 30 0RF cyclobenzaprine 10 mg tablet 10 mg PO HS PRN (Reason: muscle spasm) Qty: 10 0RF Referrals: Aurea Smith PA-C [Primary Care Provider] - In 1 week Problem List Clinical Impression: Gastritis Patient/Caregiver Discharge Instructions Discharge Activity: activity as tolerated Education Materials: Treating Gastritis Additional Instructions: Thank you for the opportunity for serving you today. You are stable for discharged . You are advised to: Follow-up with your PCP in 1 to 2 days Return to ED for worsening of symptoms Increase oral fluids Take medication as prescribed Print Language: Bhutanese Stand Alone Forms: Mary Award Info., Patient Portal Info Letter BELL/DB Supervising Physician TOBI Supervising Physician: MD Kobi [facility] Narrative MDM hospital course: 59-year-old female patient with no significant past medical history, came in for evaluation regarding epigastric pain. Onset of symptoms since 3 hours ago as sudden onset of burning-like sensation epigastric pain, radiating to the substernal area, severity moderate. Denies any cough denies any vomiting denies any fever denies any complaints no medications taken prior to ER visit. Patient's workup today all came back unremarkable including normal ultrasound gallbladder, normal troponin, chest x-ray showed possible pneumonia however patient is not having any fever no cough. EKG showed normal sinus rhythm, ventricular rate of 67 bpm, no ST segment elevation or depression noted. Patient was given Pepcid and Tylenol with complete resolution of symptoms. Patient is tolerating p.o. fluids drinking Gatorade in the ED. Medication Administration(s) Medication Administration History Discontinued Medications Acetaminophen (Acetaminophen 500 Mg Tablet) 1,000 mg PO X1 ONE Stop: 09/28/24 19:47 Last Admin: 09/28/24 20:06 Dose: 1,000 mg Documented By: ILEANA Al Hydrox/Mg Hydrox/Simethicone (Mg Hyd/Al Hyd/Carmen (Maalox Reg) Susp 30 Ml Udc) 30 ml PO X1 ONE Stop: 09/28/24 17:17 Last Admin: 09/28/24 20:09 Dose: Not Given Documented By: ILEANA Non-Admin Reason: Patient Refused Famotidine (Famotidine 20 Mg Tablet) 40 mg PO X1 ONE Stop: 09/28/24 19:47 Last Admin: 09/28/24 20:06 Dose: 40 mg Documented By: ILEANA
[2024-09-28 18:22] VITALS: PULSE 70; RESP 18; O2SAT 96
[2024-09-28 19:00] LABS: Partial Thromboplastin Time 24.3 Seconds (22.0-36.0)
[2024-09-28 19:03] LABS: Basophils # (Auto) 0.1 Thou/mm3 (0.0-0.2); Basophils % (Auto) 1 % (0-2.5); Eosinophils # (Auto) 0.1 Thou/mm3 (0.0-0.5); Eosinophils % (Auto) 1 % (0-10); Hematocrit 39.9 % (36.0-46.0); Hemoglobin 13.6 g/dL (12.0-16.0); Immature Granulocytes Auto 0.05 Thou/mm3 (0.00-0.00); Lymphocytes # (Auto) 2.9 Thou/mm3 (1.0-4.8); Lymphocytes % (Auto) 26 % (10-50); Mean Corpuscular HGB Conc 34.1 g/dl (31.0-37.0); Mean Corpuscular Hemoglobin 30.8 pg (25.0-35.0); Mean Corpuscular Volume 91 fL (80-100); Monocytes # (Auto) 1.1 Thou/mm3 (0.0-0.8); Monocytes % (Auto) 10 % (0-12); Neutrophils # (Auto) 7.1 Thou/mm3 (1.8-7.7); Neutrophils % (Auto) 63 % (37-80); Nucleated Red Blood Cell # 0.00 Thou/mm3 (0.00-0.00); Nucleated Red Blood Cell % 0 /100 WBC (0); Platelet Count 236 Thou/mm3 (140-440); RDW Standard Deviation 49.6 fL (36.4-46.3); Red Blood Count 4.41 Miln/mm3 (4.00-5.20); White Blood Count 11.2 Thou/mm3 (3.6-11.0)
[2024-09-28 19:55] LABS: B-Type Natriuretic Peptide 24 pg/mL (0-100)
[2024-09-28 20:00] LABS: Alanine Aminotransferase 16 U/L (10-49); Albumin, Serum 4.9 gm/dL (3.5-5.0); Albumin/Globulin Ratio 1.8 (1.2-2.2); Alkaline Phosphatase 85 U/L (46-116); Anion Gap 15 (7-16); Aspartate Amino Transferase 33 U/L (0-34); BUN/Creatinine Ratio 15 Ratio (12-20); Bilirubin,Total 0.9 mg/dL (0.3-1.2); Blood Urea Nitrogen 16 mg/dL (9-23); Calcium 10.2 mg/dL (8.3-10.6); Calcium (Corrected) 10.2 mg/dL (8.5-10.1); Carbon Dioxide 21.2 mMol/L (20.0-31.0); Chloride 106 mMol/L (98-107); Creatinine (Component) 1.1 mg/dL (0.6-1.3); Estimated Creatinine Clearance 42.5 mL/min (>60); Globulin 2.7 gm/dL (2.3-3.5); Glucose 89 mg/dL (74-106); Osmolality,Calculated 283 (275-295); Potassium 3.4 mMol/L (3.4-5.1); Sodium 142 mMol/L (136-145); Total Protein 7.6 gm/dL (5.7-8.2); Troponin I < 0.020 ng/mL (0.0-0.045); eGFR 59 See Note
[2024-09-28] MEDS: FAMOTIDINE 20 MG TABLET 40 MG PO (20:06)
[2024-09-28] MEDS: ACETAMINOPHEN 500 MG TABLET 1000 MG PO (20:06)
[2024-09-28 22:13] VITALS: RESP 12
== END 2024-09-28 22:14 | disposition home or self-care (01) ==
PROVIDERS: Nurse Practitioner Family; Emergency Provider Family Medicine; PCP Physician Assistant
DX: K29.70 Gastritis, unspecified, without bleeding (principal); R07.9 Chest pain, unspecified
CPT/HCPCS: 36415; 71045; 76705; 80053; 81001; 83880; 84484; 85025; 85730; 99283; A9270

== ENCOUNTER 2024-10-13 15:09 | Emergency (ER) | payer MEDICAID, SELFPAY ==
[2024-10-13 15:09] VITALS: BMI 25.2
[2024-10-13 15:16] VITALS: BP 111/61; PULSE 71; RESP 18; TEMP 36.8; O2SAT 97
--- NOTE | 2024-10-13 15:21 | XR_ITS ---
Examination: CT abdomen and pelvis without contrast. Coronal 3-D reconstructions. Sagittal 2-D reconstructions. Date and time of exam:October 13, 2024, 1607 hrs. Indications: Onset generalized abdominal pain today Comparison: May 04, 2024. CTDI: vol (mGy): 6.04. DLP: (mGycm): 319. Technique: Axial images of the abdomen have been obtained, 3 mm slice thickness Intravenous contrast material has not been administered. Low dose protocols were performed. One or more of the following dose reduction techniques were used; automated exposure control, adjustment of the mA and/or KV according to patient size, use of iterative reconstruction technique. Findings: No focal liver or splenic lesions. No gallstones. No pancreatic or adrenal mass. No renal or ureteral calculi, no hydronephrosis. Mildly fluid distended small bowel loops. No obstruction. 28 mm umbilical hernia containing incarcerated fat. Normal appendix. No diverticulitis. Contracted urinary bladder. Grade 1 spondylolisthesis L5 on S1 with advanced degenerative disc disease at this level Small calcification in the endometrium of the uterus Impression: Mild small bowel ileus No obstruction 28 mm umbilical hernia containing incarcerated fat Normal appendix
--- NOTE | 2024-10-13 15:21 | PD.EDRME ---
Rapid Medical Screening Exam RME Arrival date/time: 10/13/24 15:09 59-year-old female with no known medical history presents to the emergency room with a chief complaint of bilateral lower abdominal pain x 2 weeks that is progressively gotten worse in the last 3 days I have greeted and performed a focused initial assessment of this patient. A comprehensive ED assessment and evaluation of the patient, analysis of all test results, and completion of the medical decision making process will be conducted by additional ED providers. Chief Complaint: Abdominal Pain Time Seen by Provider: 10/13/24 15:18 Vital signs: Vital Signs Temperature 98.3 F 10/13/24 15:16 Pulse Rate 71 10/13/24 15:16 Respiratory Rate 18 10/13/24 15:16 Blood Pressure 111/61 10/13/24 15:16 Pulse Oximetry (%) 97 10/13/24 15:16 Oxygen Delivery Method Room Air 10/13/24 15:16 Vital signs reviewed by provider: Yes
[2024-10-13 15:33] LABS: Basophils # (Auto) 0.0 Thou/mm3 (0.0-0.2); Basophils % (Auto) 1 % (0-2.5); Eosinophils # (Auto) 0.2 Thou/mm3 (0.0-0.5); Eosinophils % (Auto) 2 % (0-10); Hematocrit 41.1 % (36.0-46.0); Hemoglobin 13.3 g/dL (12.0-16.0); Immature Granulocytes Auto 0.01 Thou/mm3 (0.00-0.00); Lymphocytes # (Auto) 1.7 Thou/mm3 (1.0-4.8); Lymphocytes % (Auto) 27 % (10-50); Mean Corpuscular HGB Conc 32.4 g/dl (31.0-37.0); Mean Corpuscular Hemoglobin 30.9 pg (25.0-35.0); Mean Corpuscular Volume 96 fL (80-100); Monocytes # (Auto) 0.4 Thou/mm3 (0.0-0.8); Monocytes % (Auto) 6 % (0-12); Neutrophils # (Auto) 4.2 Thou/mm3 (1.8-7.7); Neutrophils % (Auto) 64 % (37-80); Nucleated Red Blood Cell # 0.00 Thou/mm3 (0.00-0.00); Nucleated Red Blood Cell % 0 /100 WBC (0); Platelet Count 179 Thou/mm3 (140-440); RDW Standard Deviation 51.8 fL (36.4-46.3); Red Blood Count 4.30 Miln/mm3 (4.00-5.20); White Blood Count 6.5 Thou/mm3 (3.6-11.0)
[2024-10-13 15:57] LABS: Alanine Aminotransferase 27 U/L (10-49); Albumin, Serum 4.5 gm/dL (3.5-5.0); Albumin/Globulin Ratio 1.9 (1.2-2.2); Alkaline Phosphatase 82 U/L (46-116); Anion Gap 9 (7-16); Aspartate Amino Transferase 24 U/L (0-34); BUN/Creatinine Ratio 13 Ratio (12-20); Bilirubin,Total 0.5 mg/dL (0.3-1.2); Blood Urea Nitrogen 16 mg/dL (9-23); Calcium 9.8 mg/dL (8.3-10.6); Calcium (Corrected) 9.8 mg/dL (8.5-10.1); Carbon Dioxide 29.0 mMol/L (20.0-31.0); Chloride 105 mMol/L (98-107); Creatinine (Component) 1.2 mg/dL (0.6-1.3); Estimated Creatinine Clearance 39.7 mL/min (>60); Globulin 2.4 gm/dL (2.3-3.5); Glucose 88 mg/dL (74-106); Lipase 28 U/L (12-53); Osmolality,Calculated 285 (275-295); Potassium 4.1 mMol/L (3.4-5.1); Sodium 143 mMol/L (136-145); Total Protein 6.9 gm/dL (5.7-8.2); eGFR 53 See Note
--- NOTE | 2024-10-13 16:04 | PC.NURSE ---
pt taken to CT.
[2024-10-13 16:15] LABS: Collection Type, Urine Clean Catch
[2024-10-13 16:19] LABS: HCG Qualitative,Urine Negative
[2024-10-13 16:21] LABS: Bacteria,Urine Rare; Bilirubin,Urine Negative (Negative); Blood,Urine Negative (Negative); Clarity,Urine Turbid (Clear/Hazy); Color,Urine Yellow (Lt Yel-Yel); Glucose, Urine Negative (Negative); Ketones,Urine Negative (Negative); Leukocyte Esterase,Urine Positive (Negative); Nitrite,Urine Negative (Negative); PH,Urine 6.0 (5.0-7.0); Protein,Urine Negative (Neg - Trace); RBC,Urine 5 /hpf (0-3); Specific Gravity,Urine 1.026 (1.001-1.035); Squamous Epithelial Cell,Urine 6 /hpf (0-5); Urobilinogen,Urine Negative mg/dL (0.0-1.0); WBC,Urine 42 /hpf (0-5)
--- NOTE | 2024-10-13 16:32 | EDNOTE_ITS ---
ED Abdominal Pain RME/HPI General Chief Complaint: Abdominal Pain Stated complaint: ABD PAIN SINCE 09/30 Time seen by provider: 10/13/24 15:18 Arrival date/time: 10/13/24 15:09 RME / HPI RME / HPI narrative: 59-year-old female with no known medical history presents to the emergency room with a chief complaint of bilateral lower abdominal pain x 2 weeks that is progressively gotten worse in the last 3 days. Patient denies any fever denies any diarrhea, denies any other complaints no medications taken prior to arrival. Related Data Home Medications ?Medication ?Instructions ?Recorded ?Confirmed omeprazole 20 mg tablet,delayed 20 mg PO QDAY 04/11/19 09/18/20 release paroxetine HCl 20 mg tablet 20 mg PO QDAY 04/11/1906/05 Previous Rx's ?Medication ?Instructions ?Recorded acetaminophen 650 mg 650 mg PO Q8H PRN fever or p ain 03/04/21 tablet,extended release #30 tabs acetaminophen 650 mg 650 mg PO Q8H #30 tabs 05/27 tablet,extended release (Tylenol Arthritis Pain) cyclobenzaprine 10 mg tablet 10 mg PO HS #10 tabs 08/04/08 psyllium 1 tbsp PO QDAY #300 grams acetaminophen 500 mg capsule 1,000 mg (2 x 500 mg) PO Q8HR PRN 03/26/22 pain #60 caps acetaminophen 500 mg tablet 1,000 mg (2 x 500 mg) PO Q 6H PRN 07/27/22 pain #30 tabs cyclobenzaprine 10 mg tablet 10 mg PO HS PRN muscle sp asm #10 07/27/22 tabs albuterol sulfate 90 mcg/actuation 2 inh inhalation Q6 H PRN shortness 03/03/24 breath activated powder inhaler of breath or wheezing #1 ea (ProAir RespiClick) acetaminophen 500 mg capsule 500 mg PO Q6H PRN pain #3 0 caps 04/11/24 metoclopramide HCl 10 mg tablet 10 mg PO Q6H PRN nause a and 05/04/24 (Reglan) vomiting #30 tabs famotidine 20 mg tablet (Pepcid) 20 mg PO BID #14 tabs 09/28/24 nitrofurantoin 100 mg PO Q12H 7 days #14 ca ps 10/13/24 monohydrate/macrocrystals 100 mg capsule (Macrobid) polyethylene glycol 3350 17 4 g PO QDAY PRN constipati on #476 10/13/24 gram/dose oral powder (Miralax) grams Allergies Allergy/AdvReac Type Severity Reaction Status Date / Time hydrocodone Allergy Severe ITCH Verified 10/13/24 15:11 ibuprofen Allergy Severe RASH Verified 10/13/24 15:11 Review of Systems Review of Systems Narrative Review of Systems: Review of system reviewed and within normal limits except mentioned in HPI ED Exam Narrative Physical exam: VITAL SIGNS: Reviewed. GENERAL APPEARANCE: Alert and interactive, follows commands, no acute distress, HEAD AND FACE: Non-traumatic. ENT: PERRL, pink conjunctivitis, eyelid no trauma, Mucous membrane moist. NECK: Supple, nontender, no nuchal rigidity. CHEST: No tenderness, no crepitus, no paradoxical movement, no retractions. LUNGS: Clear, well ventilated, symmetric, no rales, no wheezing, no ronchi, no stridor, good breath sounds bilaterally. HEART: Regular rate, regular rhythm, no murmur, no gallops. ABDOMEN: Soft, positive bowel sounds, nondistended, no guarding, nontender, no rebound, no masses, RECTAL: Deferred. GENITAL: Deferred. NEUROLOGICAL: Gross motor function intact sensory function intact, Appropriate for age. MUSCULOSKELETAL: low back nontender, full range of motion. EXTREMITIES: Nontender, full range of motion. SKIN: Color pink, dry, no rash, no lacerations, no abrasions, no contusions. LYMPHATICS: Deferred. Course Quality Measures none Orders Category Date Time Status CT abdomen pelvis wo con Stat Exams 10/13/24 15:21 Completed CBC Stat Lab 10/13/24 15:23 Completed CMP [Comprehensive Metabolic Panel] Stat Lab 10/13/24 15:23 Completed HCG Qualitative,Urine Stat Lab 10/13/24 15:59 Completed Lipase Stat Lab 10/13/24 15:23 Completed UA [Urinalysis] Stat Lab 10/13/24 15:59 Completed Urine Culture Stat Lab 10/13/24 15:59 Received Aspirin Med 10/13/24 18:47 Discontinued 325 mg PO X1 ONE Magnesium Citrate Liqd [Citrate of Magnesia Liqd] Med 10/13/24 16:30 Discontinued 300 ml PO X1 ONE cephALEXin [Keflex] Med 10/13/24 16:30 Discontinued 500 mg PO X1 ONE Vital Signs Vital signs: Vital Signs Temperature 98.3 F 10/13/24 15:16 Pulse Rate 71 10/13/24 15:16 Respiratory Rate 18 10/13/24 15:16 Blood Pressure 111/61 10/13/24 15:16 Pulse Oximetry (%) 97 10/13/24 15:16 Oxygen Delivery Method Room Air 10/13/24 15:16 Abdominal Pain [facility] Narrative [facility] Narrative:: 59-year-old female with no known medical history presents to the emergency room with a chief complaint of bilateral lower abdominal pain x 2 weeks that is progressively gotten worse in the last 3 days. Patient denies any fever denies any diarrhea, denies any other complaints no medications taken prior to arrival. Patient CBC showed no leukocytosis. Urinalysis positive for UTI CMP unremarkable. CT scan of the abdomen pelvis showed Mild small bowel ileus No obstruction 28 mm umbilical hernia containing incarcerated fat Normal appendix Results discussed with the patient. Patient was given aspirin and Keflex. Patient data External records reviewed:: None Clinical information provided by:: none Social determinants that could affect healthcare access:: none Patient has the following chronic illnesses:: None How is presenting disease/condition affected by chronic disease/condition?: no chronic disease Evaluation data The following diagnostics were reviewed and interpreted by me:: lab results and radiology exam(s) Lab and/or radiology exams considered but not ordered:: None Interpretation Summary: See results MDM Medications / Prescriptions Medications or Prescriptions considered but not ordered:: None Medication administrations:: Medication Administration History Discontinued Medications Aspirin (Aspirin 325 Mg Tablet) 325 mg PO X1 ONE Stop: 10/13/24 18:48 Cephalexin HCl (Cephalexin 250 Mg Capsule) 500 mg PO X1 ONE Stop: 10/13/24 16:31 Last Admin: 10/13/24 16:39 Dose: 500 mg Documented By: JIMY Magnesium Citrate (Magnesium Citrate 300 Ml Btl) 300 ml PO X1 ONE Stop: 10/13/24 16:31 Last Admin: 10/13/24 16:39 Dose: 300 ml Documented By: JIMY Magnesium citrate, Keflex and aspirin Consultations Consultation(s) initiated? (list below): No Diagnosis Differential diagnosis abdominal pain: abdominal pain, small bowel obstruction and other Most likely diagnosis given after review of the tests above:: UTI, abdominal pain, umbilical hernia Admission Indicated Admission indicated?: not indicated Admission Request Was there a request for admission?: No Disposition Plan Disposition Plan: Discharge Discharge Attestation Discharge Attestation: The patient was given an opportunity to ask questions and understood the discharge instructions. Discharge instructions specifically effects, indications for sooner follow up or return to the emergency department, and the expected course of current diagnosis. Patient condition: Stable Discharge Plan Plan Patient Disposition: HOME (Self Care) Discharge Disposition comment: Stable Prescriptions/Referrals Prescriptions/Med Rec: New nitrofurantoin monohyd/m-cryst [Macrobid] 100 mg capsule 100 mg PO Q12H 7 Days Qty: 14 0RF Rx Instructions: must administer with a meal/food polyethylene glycol 3350 [Miralax] 17 gram/dose powder 4 g PO QDAY PRN (Reason: constipation) Qty: 476 0RF No Action paroxetine HCl 20 mg tablet 20 mg PO QDAY Patient Comments: TAKE ONE TABLET BY MOUTH EVERY MORNING omeprazole 20 mg tablet,delayed release (DR/EC) 20 mg PO QDAY Patient Comments: TAKE ONE TABLET BY MOUTH EVERY DAY HEARTBURN GASTRIC ACIDITY acetaminophen [Tylenol Arthritis Pain] 650 mg tablet extended release 650 mg PO Q8H Qty: 30 0RF acetaminophen 650 mg tablet extended release 650 mg PO Q8H PRN (Reason: fever or pain) Qty: 30 0RF Rx Instructions: swallow whole; do not chew/break/dissolve/open cyclobenzaprine 10 mg tablet 10 mg PO HS Qty: 10 0RF psyllium Powder 1 tbsp PO QDAY Qty: 300 0RF Rx Instructions: mix into at least 8 oz of water or juice before administering acetaminophen 500 mg capsule 1,000 mg PO Q8HR PRN (Reason: pain) Qty: 60 0RF ProAir RespiClick 90 mcg/actuation aerosol powdr breath activated 2 inh inhalation Q6H PRN (Reason: shortness of breath or wheezing) Qty: 1 0RF acetaminophen 500 mg capsule 500 mg PO Q6H PRN (Reason: pain) Qty: 30 0RF metoclopramide HCl [Reglan] 10 mg tablet 10 mg PO Q6H PRN (Reason: nausea and vomiting) Qty: 30 0RF famotidine [Pepcid] 20 mg tablet 20 mg PO BID Qty: 14 0RF acetaminophen 500 mg tablet 1,000 mg PO Q6H PRN (Reason: pain) Qty: 30 0RF cyclobenzaprine 10 mg tablet 10 mg PO HS PRN (Reason: muscle spasm) Qty: 10 0RF Referrals: Aurea Smith PA-C [Primary Care Provider] - In 1 week Problem List Clinical Impression: Abdominal pain, UTI (urinary tract infection) Patient/Caregiver Discharge Instructions Discharge Activity: activity as tolerated Education Materials: Anatomy of the Female Urinary Tract Additional Instructions: Thank you for the opportunity for serving you today. You are stable for discharged . You are advised to: Follow-up with your PCP in 1 to 2 days Return to ED for worsening of symptoms Increase oral fluids Take medication as prescribed Print Language: Togolese Stand Alone Forms: Mary Award Info., Patient Portal Info Letter BELL/DB Supervising Physician BELL/DB Supervising Physician: MD Kobi
[2024-10-13] MEDS: MAGNESIUM CITRATE 300 ML BTL PO (16:39)
[2024-10-13 18:08] VITALS: BP 109/57; PULSE 65; RESP 17; TEMP 36.9; O2SAT 95
[2024-10-13 19:04] VITALS: BP 108/75; PULSE 85; RESP 14; TEMP 37; O2SAT 99
== END 2024-10-13 19:06 | disposition home or self-care (01) ==
PROVIDERS: Nurse Practitioner Family; Emergency Provider Family Medicine; PCP Physician Assistant
DX: N39.0 Urinary tract infection, site not specified (principal); K56.7 Ileus, unspecified; K42.0 Umbilical hernia with obstruction, without gangrene
CPT/HCPCS: 36415; 74176; 80053; 81001; 81025; 83690; 85025; 87077; 87086; 87186; 99283; A9270

== ENCOUNTER 2024-10-21 22:54 | Emergency (ER) | payer MEDICAID, SELFPAY ==
[2024-10-21 23:02] VITALS: BP 112/72; PULSE 93; RESP 18; TEMP 37.4; O2SAT 97
--- NOTE | 2024-10-21 23:20 | XR_ITS ---
Examination: CT abdomen and pelvis without contrast. Coronal 3-D reconstructions. Sagittal 2-D reconstructions. Date and time of exam:October 21 and 2024, 11:30 PM Indications: Onset abdominal pain today CTDI: vol (mGy): 5.54 DLP: (mGycm): 267 Technique: Axial images of the abdomen have been obtained, 3 mm slice thickness Intravenous contrast material has not been administered. Low dose protocols were performed. One or more of the following dose reduction techniques were used; automated exposure control, adjustment of the mA and/or KV according to patient size, use of iterative reconstruction technique. Findings: No focal liver or splenic lesions No gallstones No pancreatic or adrenal mass No renal or ureteral calculi 28 mm fat-containing umbilical hernia. Normal appendix No bowel obstruction Intact urinary bladder Grade 1 spondylolisthesis L5 on S1 with advanced degenerative disc disease at this level Impression: No renal or ureteral calculi, no hydronephrosis. No bowel obstruction Normal appendix
[2024-10-22 00:27] LABS: Collection Type, Urine Clean Catch
[2024-10-22 00:28] LABS: Basophils # (Auto) 0.1 Thou/mm3 (0.0-0.2); Basophils % (Auto) 1 % (0-2.5); Eosinophils # (Auto) 0.0 Thou/mm3 (0.0-0.5); Eosinophils % (Auto) 0 % (0-10); Hematocrit 39.9 % (36.0-46.0); Hemoglobin 13.6 g/dL (12.0-16.0); Immature Granulocytes Auto 0.04 Thou/mm3 (0.00-0.00); Lymphocytes # (Auto) 3.3 Thou/mm3 (1.0-4.8); Lymphocytes % (Auto) 28 % (10-50); Mean Corpuscular HGB Conc 34.1 g/dl (31.0-37.0); Mean Corpuscular Hemoglobin 31.4 pg (25.0-35.0); Mean Corpuscular Volume 92 fL (80-100); Monocytes # (Auto) 1.3 Thou/mm3 (0.0-0.8); Monocytes % (Auto) 11 % (0-12); Neutrophils # (Auto) 7.1 Thou/mm3 (1.8-7.7); Neutrophils % (Auto) 60 % (37-80); Nucleated Red Blood Cell # 0.00 Thou/mm3 (0.00-0.00); Nucleated Red Blood Cell % 0 /100 WBC (0); Platelet Count 227 Thou/mm3 (140-440); RDW Standard Deviation 48.9 fL (36.4-46.3); Red Blood Count 4.33 Miln/mm3 (4.00-5.20); White Blood Count 11.9 Thou/mm3 (3.6-11.0)
[2024-10-22 00:32] LABS: Amorphous Crystals,Urine Present (Absent); Bacteria,Urine Rare; Bilirubin,Urine 1+ (Negative); Blood,Urine Trace (Negative); Clarity,Urine Turbid (Clear/Hazy); Color,Urine Yellow (Lt Yel-Yel); Glucose, Urine Negative (Negative); Hyaline Casts,Urine 3 /hpf (0-1); Ketones,Urine 2+ (Negative); Leukocyte Esterase,Urine Positive (Negative); Nitrite,Urine Negative (Negative); PH,Urine 5.5 (5.0-7.0); Protein,Urine 1+ (Neg - Trace); RBC,Urine 10 /hpf (0-3); Specific Gravity,Urine 1.032 (1.001-1.035); Squamous Epithelial Cell,Urine 4 /hpf (0-5); Urobilinogen,Urine 3.0 mg/dL (0.0-1.0); WBC,Urine 25 /hpf (0-5)
[2024-10-22 00:34] LABS: HCG Qualitative,Urine Negative
[2024-10-22 01:02] LABS: Alanine Aminotransferase 17 U/L (10-49); Albumin, Serum 5.1 gm/dL (3.5-5.0); Albumin/Globulin Ratio 1.6 (1.2-2.2); Alkaline Phosphatase 91 U/L (46-116); Anion Gap 18 (7-16); Aspartate Amino Transferase 30 U/L (0-34); BUN/Creatinine Ratio 17 Ratio (12-20); Bilirubin,Total 2.2 mg/dL (0.3-1.2); Blood Urea Nitrogen 30 mg/dL (9-23); Calcium 10.1 mg/dL (8.3-10.6); Calcium (Corrected) 10.1 mg/dL (8.5-10.1); Carbon Dioxide 22.9 mMol/L (20.0-31.0); Chloride 100 mMol/L (98-107); Creatinine (Component) 1.8 mg/dL (0.6-1.3); Globulin 3.1 gm/dL (2.3-3.5); Glucose 89 mg/dL (74-106); Osmolality,Calculated 286 (275-295); Potassium 3.4 mMol/L (3.4-5.1); Sodium 141 mMol/L (136-145); Total Protein 8.2 gm/dL (5.7-8.2); eGFR 32 See Note
--- NOTE | 2024-10-22 01:45 | EDNOTE_ITS ---
ED Abdominal Pain RME/HPI General Chief Complaint: Abdominal Pain Stated complaint: ABD PAIN Time seen by provider: 10/21/24 23:19 Arrival date/time: 10/21/24 22:54 This is a case of a 59-year-old female with history of gastritis and hernia came in in the emergency room due to abdominal pain located in the suprapubic and epigastric area for 1 day associated with nausea vomiting persistence of the symptoms this patient decided to sought consult here in the emergency room denies any diarrhea denies any constipation denies any blood in stool Source: patient Limitations: no limitations Related Data Home Medications ?Medication ?Instructions ?Recorded ?Confirmed omeprazole 20 mg tablet,delayed 20 mg PO QDAY 04/11/19 09/18/20 release paroxetine HCl 20 mg tablet 20 mg PO QDAY 04/11/1906/05 Previous Rx's ?Medication ?Instructions ?Recorded acetaminophen 650 mg 650 mg PO Q8H PRN fever or p ain 03/04/21 tablet,extended release #30 tabs acetaminophen 650 mg 650 mg PO Q8H #30 tabs 05/27 tablet,extended release (Tylenol Arthritis Pain) cyclobenzaprine 10 mg tablet 10 mg PO HS #10 tabs 08/0 04/08 psyllium 1 tbsp PO QDAY #300 grams acetaminophen 500 mg capsule 1,000 mg (2 x 500 mg) PO Q8HR PRN 03/26/22 pain #60 caps acetaminophen 500 mg tablet 1,000 mg (2 x 500 mg) PO Q 6H PRN 07/27/22 pain #30 tabs cyclobenzaprine 10 mg tablet 10 mg PO HS PRN muscle sp asm #10 07/27/22 tabs albuterol sulfate 90 mcg/actuation 2 inh inhalation Q6 H PRN shortness 03/03/24 breath activated powder inhaler of breath or wheezing #1 ea (ProAir RespiClick) acetaminophen 500 mg capsule 500 mg PO Q6H PRN pain #3 0 caps 04/11/24 metoclopramide HCl 10 mg tablet 10 mg PO Q6H PRN nause a and 05/04/24 (Reglan) vomiting #30 tabs famotidine 20 mg tablet (Pepcid) 20 mg PO BID #14 tabs 09/28/24 polyethylene glycol 3350 17 4 g PO QDAY PRN constipati on #476 10/13/24 gram/dose oral powder (Miralax) grams cephalexin 500 mg capsule 500 mg PO Q8H #30 caps 10/22 famotidine 20 mg tablet 20 mg PO BID #60 tabs omeprazole 20 mg capsule,delayed 20 mg PO QDAY #30 cap s 10/22/24 release ondansetron 4 mg disintegrating 4 mg PO Q8H PRN nausea and 10/22/24 tablet vomiting #20 tabs Allergies Allergy/AdvReac Type Severity Reaction Status Date / Time hydrocodone Allergy Severe ITCH Verified 10/22/24 00:03 ibuprofen Allergy Severe RASH Verified 10/22/24 00:03 Review of Systems Review of Systems Systems Reviewed: All systems reviewed, normal except as documented Constitutional Constitutional: Reports system reviewed and no additional complaints, except as documented, Reports as per HPI, Denies anorexia, Denies chills and Denies fever(s) Cardiovascular Cardiovascular: Reports system reviewed and no additional complaints, except as documented, Reports as per HPI, Denies chest pain and Denies dyspnea Respiratory Respiratory: Reports system reviewed and no additional complaints, except as documented, Reports as per HPI, Denies chest congestion, Denies cough and Denies dyspnea Gastrointestinal Gastrointestinal: Reports system reviewed and no additional complaints, except as documented, Reports as per HPI, Reports abdominal pain, Reports nausea and Reports vomiting Genitourinary Genitourinary: Reports system reviewed and no additional complaints, except as documented and Reports as per HPI Musculoskeletal Musculoskeletal: Reports system reviewed and no additional complaints, except as documented and Reports as per HPI Neurologic Neurologic: Reports system reviewed and no additional complaints, except as documented and Reports as per HPI Past Medical History Past Medical History NEUROLOGIC: Negative Neurological Disorders or Seizures CARDIAC: Negative Cardiac Disorders or Congestive Heart Failure RESPIRATORY: Positive Pneumonia; Negative Chronic Obstructive Pulmonary Disease (COPD) or Asthma GASTROINTESTINAL: Positive Gastrointestinal Disorders, Ulcer and Gastroesophageal Reflux Disease GENITOURINARY: Negative Genitourinary Disorders or Renal Disease REPRODUCTIVE: Positive Previous Pregnancies MUSCULOSKELETAL: Positive Musculoskeletal Disorders and Arthritis ENDOCRINE: Negative Endocrine Disorders, Diabetes Mellitus Type 1 or Diabetes Mellitus Type 2 HEMATOLOGIC: Positive Blood Disorders and Anemia; Negative Sickle Cell Disease or Clotting Problems PSYCHO/SOCIAL: Positive Depression OTHER HISTORY: Positive Chicken Pox; Negative Hospitalization, Shingles, Falls, Blood Transfusions, Anesthesia Reactions or Cancer Family History FAMILY HISTORY: Negative Family Respiratory Disorders, Family Cardiac Disorders, Family Cancer or Family Anesthesia Reaction Surgical History SURGICAL: Positive Arthroscopy (rt knee), Tubal Ligation and Section Social History SMOKING STATUS: Never smoker SUBSTANCE USE: does not use ED Exam General Limitations: Present no limitations General appearance: Present alert, in no apparent distress and other (Patient is awake alert oriented not in distress nontoxic looking well-hydrated well- nourished) Head Head exam: Present atraumatic, normocephalic and normal inspection Eye Eye exam: Present normal appearance, PERRL and EOMI ENT ENT exam: Present normal exam, normal oropharynx and mucous membranes moist Neck Neck exam: Present normal inspection, full ROM and trachea midline; Absent tenderness, meningismus, lymphadenopathy or thyromegaly Chest Chest inspection: Present normal inspection and symmetric chest wall rise; Absent tenderness Respiratory Respiratory exam: Present normal lung sounds bilaterally; Absent respiratory distress, wheezes, stridor, accessory muscle use or prolonged expiratory phase Cardiovascular Cardiovascular exam: Present regular rate, normal rhythm and normal heart sounds; Absent bradycardia, tachycardia, irregular rhythm, systolic murmur or diastolic murmur Abdominal Exam Abdominal exam: Present soft, tenderness (Mild tenderness suprapubic area and epigastric area no CVA tenderness) and normal bowel sounds; Absent distention, guarding, rebound, rigidity, diminished bowel sounds, hyperactive bowel sounds, hypoactive bowel sounds, organomegaly, trauma, psoas sign, obturator sign, Oswald's sign, Rovsing's sign or tenderness at McBurney's Point Extremities Exam Extremities exam: Present normal inspection and full ROM Back Exam Back exam: Present normal inspection and full ROM Neurological Exam Neurological exam: Present alert, oriented X3, CN II-XII intact, normal gait and reflexes normal; Absent motor sensory deficit Psychiatric Psychiatric exam: Present normal affect and normal mood Skin Skin exam: Present warm, dry, intact and normal color Course Quality Measures VTE prophylaxis and none Orders Category Date Time Status CT abdomen pelvis wo con Stat Exams 10/21/24 23:20 Completed CBC Stat Lab 10/21/24 23:53 Completed Comprehensive Metabolic Panel Stat Lab 10/21/24 23:53 Results HCG Qualitative,Urine Stat Lab 10/21/24 23:40 Completed Lipase Stat Lab 10/21/24 23:53 Results Urinalysis Stat Lab 10/21/24 23:40 Completed Lidocaine 2% Viscous [Xylocaine 2% Viscous] Med 10/22/24 01:40 Once 15 ml PO X1 ONE Ondansetron Odt [Zofran Odt] Med 10/22/24 01:40 Once 4 mg PO X1 ONE cephALEXin [Keflex] Med 10/22/24 01:40 Once 500 mg PO X1 ONE mg Hyd/Al Hyd/Carmen Susp [Maalox Susp] Med 10/22/24 01:40 Once 30 ml PO X1 ONE Vital Signs Vital signs: Vital Signs Temperature 99.3 F 10/21/24 23:02 Pulse Rate 93 10/21/24 23:02 Respiratory Rate 18 10/21/24 23:02 Blood Pressure 112/72 10/21/24 23:02 Pulse Oximetry (%) 97 10/21/24 23:02 Oxygen Delivery Method Room Air 10/21/24 23:02 Oxygen saturation is 97% on room air Abdominal Pain MDM MDM Narrative MDM Narrative:: This is a case of a 59-year-old female with history of gastritis and hernia came in in the emergency room due to abdominal pain located in the suprapubic and epigastric area for 1 day associated with nausea vomiting persistence of the symptoms this patient decided to sought consult here in the emergency room denies any diarrhea denies any constipation denies any blood in stool physical examination patient is awake alert oriented not in distress nontoxic looking well-hydrated well-nourished no signs and symptoms of sepsis dehydration or acute abdomen abdominal exam is benign nonsurgical no guarding no rebound no rigidity very mild tenderness on the epigastric area and suprapubic area no guarding no rebound no rigidity negative psoas negative straight or -12 system no McBurney's and Oswald sign negative CVA tenderness blood test showed leukocytosis WBC is 11,000 no anemia platelet is normal kidney and liver function is normal no electrolyte imbalance lipase is not available at the time of exam urinalysis showed WBC in the urine suggestive of urinary tract infection CT scan normal only umbilical hernia patient was given GI cocktail Tylenol and Zofran which patient condition markedly improved she was advised to follow-up with PCP in 2 days for evaluation negative be referred to GI specialist for hernia and gastritis modified diet is advised recurrence persistent worsening symptoms return precaution in the emergency room below call 911 Patient was discharged with comfortable condition walking with stable gait. Patient verbalized no further complains explained diagnosis and answered patient question. Patient is comfortable with the proposed management plan including the need to follow up with his/her primary care physician and any specialist if applicable Discussed patient for any urgent condition or worsening sx, He/She needed to go to emergency room immediately or call 911. Patient acknowledge the responsibility to follow up as instructed and to monitor her/his symptoms. For any persistence of the symptoms for more than 3-5 days return precaution advised. Discussed the result of the test and was given printed discharge instruction Patient data External records reviewed:: [facility] previous records Clinical information provided by:: patient Social determinants that could affect healthcare access:: none Patient has the following chronic illnesses:: None How is presenting disease/condition affected by chronic disease/condition?: no chronic disease Evaluation data The following diagnostics were reviewed and interpreted by me:: lab results and radiology exam(s) Lab and/or radiology exams considered but not ordered:: Reviewed Interpretation Summary: Reviewed Medications / Prescriptions Medications or Prescriptions considered but not ordered:: Given Medication administrations:: Medication Administration History Al Hydrox/Mg Hydrox/Simethicone (Mg Hyd/Al Hyd/Carmen (Maalox Reg) Susp 30 Ml Udc) 30 ml PO X1 ONE Stop: 10/22/24 01:41 Cephalexin HCl (Cephalexin 250 Mg Capsule) 500 mg PO X1 ONE Stop: 10/22/24 01:41 Lidocaine HCl (Lidocaine Viscous 2% 15 Ml Udc) 15 ml PO X1 ONE Stop: 10/22/24 01:41 Ondansetron HCl (Ondansetron Odt 4 Mg Tabrap) 4 mg PO X1 ONE; Protocol Stop: 10/22/24 01:41 Given Consultations Consultation(s) initiated? (list below): No Diagnosis Differential diagnosis abdominal pain: abdominal pain, acute appendicitis, calculus of kidney, diverticulitis, gastroenteritis, pancreatitis and small bowel obstruction Most likely diagnosis given after review of the tests above:: Urinary tract infection gastritis Admission Indicated Admission indicated?: not indicated Explain why admission is indicated or not indicated:: Not indicated Admission Request Was there a request for admission?: No Admission Attestation Admission request attestation: Not indicated Disposition Plan Disposition Plan: Discharge Discharge Attestation Discharge Attestation: The patient and all family members were given an opportunity to ask questions and understood the discharge instructions. Discharge instructions specifically effects, indications for sooner follow up or return to the emergency department, and the expected course of current diagnosis. Patient condition: Stable Discharge Plan Plan Patient Disposition: HOME (Self Care) Patient condition on transfer: Stable Prescriptions/Referrals Prescriptions/Med Rec: New famotidine 20 mg tablet 20 mg PO BID Qty: 60 0RF cephalexin 500 mg capsule 500 mg PO Q8H Qty: 30 0RF omeprazole 20 mg capsule,delayed release(DR/EC) 20 mg PO QDAY Qty: 30 0RF ondansetron 4 mg tablet,disintegrating 4 mg PO Q8H PRN (Reason: nausea and vomiting) Qty: 20 0RF No Action paroxetine HCl 20 mg tablet 20 mg PO QDAY Patient Comments: TAKE ONE TABLET BY MOUTH EVERY MORNING omeprazole 20 mg tablet,delayed release (DR/EC) 20 mg PO QDAY Patient Comments: TAKE ONE TABLET BY MOUTH EVERY DAY [facility] GASTR[employer]ITY acetaminophen [Tylenol Arthritis Pain] 650 mg tablet extended release 650 mg PO Q8H Qty: 30 0RF acetaminophen 650 mg tablet extended release 650 mg PO Q8H PRN (Reason: fever or pain) Qty: 30 0RF Rx Instructions: swallow whole; do not chew/break/dissolve/open cyclobenzaprine 10 mg tablet 10 mg PO HS Qty: 10 0RF psyllium Powder 1 tbsp PO QDAY Qty: 300 0RF Rx Instructions: mix into at least 8 oz of water or juice before administering acetaminophen 500 mg capsule 1,000 mg PO Q8HR PRN (Reason: pain) Qty: 60 0RF ProAir RespiClick 90 mcg/actuation aerosol powdr breath activated 2 inh inhalation Q6H PRN (Reason: shortness of breath or wheezing) Qty: 1 0RF acetaminophen 500 mg capsule 500 mg PO Q6H PRN (Reason: pain) Qty: 30 0RF metoclopramide HCl [Reglan] 10 mg tablet 10 mg PO Q6H PRN (Reason: nausea and vomiting) Qty: 30 0RF famotidine [Pepcid] 20 mg tablet 20 mg PO BID Qty: 14 0RF polyethylene glycol 3350 [Miralax] 17 gram/dose powder 4 g PO QDAY PRN (Reason: constipation) Qty: 476 0RF acetaminophen 500 mg tablet 1,000 mg PO Q6H PRN (Reason: pain) Qty: 30 0RF cyclobenzaprine 10 mg tablet 10 mg PO HS PRN (Reason: muscle spasm) Qty: 10 0RF Referrals: Aurea Smith PA-C [Primary Care Provider, Family Practice] - In 1 week Problem List Clinical Impression: Abdominal pain, Gastritis, Urinary tract infection, Hernia, umbilical Patient/Caregiver Discharge Instructions Education Materials: Abdominal Pain, Urinary Tract Infections in Women, ED Gastritis (Adult), ED Hernia (Adult) Additional Instructions: Follow-up with your primary care physician in 2 days for reevaluation and to be referred to assistant grocery store manager for further evaluation and treatment of umbilical hernia and gastritis recurrence persistent worsening symptoms or any emergent concern call 911 or go to the nearest emergency room take your medication as directed finish the course of antibiotic increase water intake keep hydrated Pedialyte Gatorade for hydration is advised avoid skipping of meals avoid fatty fried high cholesterol foods avoid spicy food avoid alcohol soda and coffee advised Print Language: Vietnamese Stand Alone Forms: Mary Award Info., Patient Portal Info Letter PA/DIRECTOR OF QUALITY IMPROVEMENT Supervising Physician PA/DIRECTOR OF QUALITY IMPROVEMENT Supervising Physician: Dr. Peace
[2024-10-22] MEDS: LIDOCAINE VISCOUS 2% 15 ML UDC PO (02:14)
[2024-10-22] MEDS: MG HYD/AL HYD/SIME (Maalox Reg) SUSP 30 ML UDC PO (02:14)
[2024-10-22] MEDS: ONDANSETRON ODT 4 MG TABRAP PO (02:14)
[2024-10-22 22:05] LABS: Lipase 28 U/L (12-53)
== END 2024-10-22 02:21 | disposition home or self-care (01) ==
PROVIDERS: Nurse Practitioner Family; Emergency Provider Emergency Medicine; PCP Physician Assistant
DX: K46.9 Unspecified abdominal hernia without obstruction or gangrene (principal); K29.70 Gastritis, unspecified, without bleeding; N39.0 Urinary tract infection, site not specified; R10.9 Unspecified abdominal pain
CPT/HCPCS: 36415; 74176; 80053; 81001; 81025; 83690; 85025; 99283; J3490; Q0162; A9270

== ENCOUNTER 2024-10-29 14:02 | Emergency (ER) | payer MEDICAID, SELFPAY ==
[2024-10-29 14:03] VITALS: BMI 24.2
[2024-10-29 14:54] VITALS: BP 118/66; PULSE 65; RESP 18; TEMP 36.7; O2SAT 99
--- NOTE | 2024-10-29 15:30 | EDNOTE_ITS ---
<Statement entered by Diamond Blackwell MD - 10/30/24 14:39> As co-signing physician, I was present and available for consult prn. I concur with the plan and care as documented by the midlevel provider. ED Abdominal Pain RME/HPI General Chief Complaint: Abdominal Pain Stated complaint: MY ULCER AND HERNIA BOTHERING ME TODAY Time seen by provider: 10/29/24 15:17 Arrival date/time: 10/29/24 14:02 RME / HPI RME / HPI narrative: 59-year-old patient presents emergency department with complaint of left lower abdominal pain. Patient states she just completed a dose of cephalexin and Zofran that alleviated her pain. She denies vomiting but she attests to nausea she denies fever or chills. She denies pain with urination. Patient was seen recently in the emergency department at the end of September 22 2024 and October 24 2024 on both occasions patient received a CT scan with contrast that were both unremarkable. UA did indicate UTI for which she was prescribed cephalexin and Zofran. Patient returns today with similar complaints that her symptoms returned after she completed her dose of cephalexin Related Data Home Medications ?Medication ?Instructions ?Recorded ?Confirmed omeprazole 20 mg tablet,delayed 20 mg PO QDAY 04/11/19 09/18/20 release paroxetine HCl 20 mg tablet 20 mg PO QDAY 04/11/1906/05 Previous Rx's ?Medication ?Instructions ?Recorded acetaminophen 650 mg 650 mg PO Q8H PRN fever or p ain 03/04/21 tablet,extended release #30 tabs acetaminophen 650 mg 650 mg PO Q8H #30 tabs 05/27 tablet,extended release (Tylenol Arthritis Pain) cyclobenzaprine 10 mg tablet 10 mg PO HS #10 tabs 08/0 04/08 psyllium 1 tbsp PO QDAY #300 grams acetaminophen 500 mg capsule 1,000 mg (2 x 500 mg) PO Q8HR PRN 03/26/22 pain #60 caps acetaminophen 500 mg tablet 1,000 mg (2 x 500 mg) PO Q 6H PRN 07/27/22 pain #30 tabs cyclobenzaprine 10 mg tablet 10 mg PO HS PRN muscle sp asm #10 07/27/22 tabs albuterol sulfate 90 mcg/actuation 2 inh inhalation Q6 H PRN shortness 03/03/24 breath activated powder inhaler of breath or wheezing #1 ea (ProAir RespiClick) acetaminophen 500 mg capsule 500 mg PO Q6H PRN pain #3 0 caps 04/11/24 metoclopramide HCl 10 mg tablet 10 mg PO Q6H PRN nause a and 05/04/24 (Reglan) vomiting #30 tabs famotidine 20 mg tablet (Pepcid) 20 mg PO BID #14 tabs 09/28/24 polyethylene glycol 3350 17 4 g PO QDAY PRN constipati on #476 10/13/24 gram/dose oral powder (Miralax) grams cephalexin 500 mg capsule 500 mg PO Q8H #30 caps 10/22 famotidine 20 mg tablet 20 mg PO BID #60 tabs omeprazole 20 mg capsule,delayed 20 mg PO QDAY #30 cap s 10/22/24 release ondansetron 4 mg disintegrating 4 mg PO Q8H PRN nausea and 10/22/24 tablet vomiting #20 tabs docusate sodium 100 mg capsule 100 mg PO BID 10 days # 20 caps 10/29/24 Allergies Allergy/AdvReac Type Severity Reaction Status Date / Time hydrocodone Allergy Severe ITCH Verified 10/22/24 00:03 ibuprofen Allergy Severe RASH Verified 10/22/24 00:03 Review of Systems Review of Systems Systems Reviewed: All systems reviewed, normal except as documented Constitutional Constitutional: Reports system reviewed and no additional complaints, except as documented Cardiovascular Cardiovascular: Reports system reviewed and no additional complaints, except as documented Respiratory Respiratory: Reports system reviewed and no additional complaints, except as documented Genitourinary Genitourinary: Reports system reviewed and no additional complaints, except as documented Musculoskeletal Musculoskeletal: Reports system reviewed and no additional complaints, except as documented ED Exam General General appearance: Present alert and in no apparent distress Head Head exam: Present atraumatic and normocephalic ENT ENT exam: Present normal exam and normal oropharynx Chest Chest inspection: Present normal inspection and symmetric chest wall rise Respiratory Respiratory exam: Present normal lung sounds bilaterally Cardiovascular Cardiovascular exam: Present regular rate and normal rhythm Abdominal Exam Abdominal exam: Present soft; Absent distention, tenderness, guarding, rebound, organomegaly, Oswald's sign, Rovsing's sign, tenderness at McBurney's Point, ascites or hernia Neurological Exam Neurological exam: Present alert and oriented X3 Course Quality Measures none Orders Category Date Time Status XR abdomen 1V Stat Exams 10/29/24 15:33 Completed Urinalysis, C/S if Indicated Stat Lab 10/29/24 15:45 Completed Urine Culture Stat Lab 10/29/24 15:45 Received Acetaminophen Tab [Tylenol ES Tab] Med 10/29/24 15:30 Discontinued 1,000 mg PO X1 ONE Magnesium Citrate Liqd [Citrate of Magnesia Liqd] Med 10/29/24 19:11 Discontinued 300 ml PO X1 ONE Ondansetron Odt [Zofran Odt] Med 10/29/24 15:25 Discontinued 4 mg PO X1 ONE Vital Signs Vital signs: Vital Signs Temperature 98.1 F 10/29/24 14:54 Pulse Rate 65 10/29/24 14:54 Respiratory Rate 18 10/29/24 14:54 Blood Pressure 118/66 10/29/24 14:54 Pulse Oximetry (%) 99 10/29/24 14:54 Oxygen Delivery Method Room Air 10/29/24 14:54 Abdominal Pain MDM MDM Narrative MDM Narrative:: 59-year-old patient presents emergency department with complaint of left lower abdominal pain patient was seen here on October 13, 2024 and on October 21, 2024. On both occasions patient received CT scan with contrast given recent CT scans no CT scan was ordered today. Also urinalysis from past visit indicated presence of E. coli and patient does finish the dose of cephalexin. Bowel stimulant ordered for constipation at this time as abdominal x-ray indicates constipation. Doubt possibility of ovarian cyst or ovarian torsion given patient's presentation. Patient data External records reviewed:: [facility] previous records Clinical information provided by:: patient Social determinants that could affect healthcare access:: none Patient has the following chronic illnesses:: Not applicable How is presenting disease/condition affected by chronic disease/condition?: no chronic disease Evaluation data The following diagnostics were reviewed and interpreted by me:: lab results and radiology exam(s) Lab and/or radiology exams considered but not ordered:: Lab and radiology exams considered and ordered Interpretation Summary: Constipation Medications / Prescriptions Medications or Prescriptions considered but not ordered:: Medications/prescriptions considered and ordered Medication administrations:: Medication Administration History Discontinued Medications Acetaminophen (Acetaminophen 500 Mg Tablet) 1,000 mg PO X1 ONE Stop: 10/29/24 15:31 Last Admin: 10/29/24 15:38 Dose: 1,000 mg Documented By: ROB Magnesium Citrate (Magnesium Citrate 300 Ml Btl) 300 ml PO X1 ONE Stop: 10/29/24 19:12 Last Admin: 10/29/24 19:57 Dose: 300 ml Documented By: ROB Comments: UNABLE TO SCAN Ondansetron HCl (Ondansetron Odt 4 Mg Tabrap) 4 mg PO X1 ONE; Protocol Stop: 10/29/24 15:26 Last Admin: 10/29/24 15:38 Dose: 4 mg Documented By: ROB Per above Consultations Consultation(s) initiated? (list below): No Consultation #1 (Physician, Specialty, Details): n/a Diagnosis Differential diagnosis abdominal pain: abdominal pain, acute appendicitis, calculus of kidney, constipation, diverticulitis, gastroenteritis and small bowel obstruction Most likely diagnosis given after review of the tests above:: constipation Admission Indicated Admission indicated?: not indicated Explain why admission is indicated or not indicated:: No life-threatening emergency noted at this visit Admission Request Was there a request for admission?: No Disposition Plan Disposition Plan: Discharge Discharge Attestation Discharge Attestation: The patient and all family members were given an opportunity to ask questions and understood the discharge instructions. Discharge instructions specifically effects, indications for sooner follow up or return to the emergency department, and the expected course of current diagnosis. Patient condition: Stable Discharge Plan Plan Patient Disposition: HOME (Self Care) Prescriptions/Referrals Prescriptions/Med Rec: New docusate sodium 100 mg capsule 100 mg PO BID 10 Days Qty: 20 0RF No Action paroxetine HCl 20 mg tablet 20 mg PO QDAY Patient Comments: TAKE ONE TABLET BY MOUTH EVERY MORNING omeprazole 20 mg tablet,delayed release (DR/EC) 20 mg PO QDAY Patient Comments: TAKE ONE TABLET BY MOUTH EVERY DAY HEARTBURN GASTRIC ACIDITY acetaminophen [Tylenol Arthritis Pain] 650 mg tablet extended release 650 mg PO Q8H Qty: 30 0RF acetaminophen 650 mg tablet extended release 650 mg PO Q8H PRN (Reason: fever or pain) Qty: 30 0RF Rx Instructions: swallow whole; do not chew/break/dissolve/open cyclobenzaprine 10 mg tablet 10 mg PO HS Qty: 10 0RF psyllium Powder 1 tbsp PO QDAY Qty: 300 0RF Rx Instructions: mix into at least 8 oz of water or juice before administering acetaminophen 500 mg capsule 1,000 mg PO Q8HR PRN (Reason: pain) Qty: 60 0RF ProAir RespiClick 90 mcg/actuation aerosol powdr breath activated 2 inh inhalation Q6H PRN (Reason: shortness of breath or wheezing) Qty: 1 0RF acetaminophen 500 mg capsule 500 mg PO Q6H PRN (Reason: pain) Qty: 30 0RF metoclopramide HCl [Reglan] 10 mg tablet 10 mg PO Q6H PRN (Reason: nausea and vomiting) Qty: 30 0RF famotidine [Pepcid] 20 mg tablet 20 mg PO BID Qty: 14 0RF polyethylene glycol 3350 [Miralax] 17 gram/dose powder 4 g PO QDAY PRN (Reason: constipation) Qty: 476 0RF famotidine 20 mg tablet 20 mg PO BID Qty: 60 0RF cephalexin 500 mg capsule 500 mg PO Q8H Qty: 30 0RF omeprazole 20 mg capsule,delayed release(DR/EC) 20 mg PO QDAY Qty: 30 0RF ondansetron 4 mg tablet,disintegrating 4 mg PO Q8H PRN (Reason: nausea and vomiting) Qty: 20 0RF acetaminophen 500 mg tablet 1,000 mg PO Q6H PRN (Reason: pain) Qty: 30 0RF cyclobenzaprine 10 mg tablet 10 mg PO HS PRN (Reason: muscle spasm) Qty: 10 0RF Referrals: Aruea Smith PA-C [Primary Care Provider, Family Practice] - In 1 week Problem List Clinical Impression: Constipation, Abdominal pain Patient/Caregiver Discharge Instructions Education Materials: Abdominal Pain, ED Constipation (Adult) Print Language: Wolof Stand Alone Forms: Mary Award Info., Patient Portal Info Letter
--- NOTE | 2024-10-29 15:33 | XR_ITS ---
Examination: Abdomen AP single view Technique: AP portable supine abdomen, single view Exam date and time: October 29, 2024 1549 hrs. Indications: Onset abdominal pain today. Findings: Large amounts of stool throughout the colon. No obstruction. No free air Impression: Large amounts of stool throughout the colon.
[2024-10-29] MEDS: ACETAMINOPHEN 500 MG TABLET 1000 MG PO (15:38)
[2024-10-29] MEDS: ONDANSETRON ODT 4 MG TABRAP PO (15:38)
[2024-10-29 15:57] LABS: Collection Type, Urine Voided
[2024-10-29 16:36] LABS: Bilirubin,Urine Negative (Negative); Blood,Urine Negative (Negative); Color,Urine Yellow (Lt Yel-Yel); Glucose, Urine Negative (Negative); Ketones,Urine Negative (Negative); Leukocyte Esterase,Urine Positive (Negative); Nitrite,Urine Negative (Negative); PH,Urine 7.5 (5.0-7.0); Protein,Urine Negative (Neg - Trace); RBC,Urine 1 /hpf (0-3); Specific Gravity,Urine 1.016 (1.001-1.035); Squamous Epithelial Cell,Urine 3 /hpf (0-5); Urobilinogen,Urine 2.0 mg/dL (0.0-1.0); WBC,Urine 28 /hpf (0-5)
[2024-10-29 16:38] LABS: Clarity,Urine Hazy (Clear/Hazy); Culture Indicated,Urine Yes
[2024-10-29] MEDS: MAGNESIUM CITRATE 300 ML BTL PO (19:57)
== END 2024-10-29 20:41 | disposition home or self-care (01) ==
PROVIDERS: Physician Assistant; Emergency Provider Emergency Medicine; PCP Physician Assistant
DX: K59.00 Constipation, unspecified (principal)
CPT/HCPCS: 74018; 81001; 87086; 99283; Q0162; A9270

== ENCOUNTER 2024-11-08 17:30 | Emergency (ER) | payer MEDICAID, SELFPAY ==
[2024-11-08 17:45] VITALS: BP 114/77; PULSE 64; RESP 16; TEMP 36.9; O2SAT 96
--- NOTE | 2024-11-08 17:57 | PD.EDEAR ---
ED Ear RME/HPI General Chief complaint: Ear Stated complaint: BILATERAL EAR PAIN, HEADACHE Time Seen by Provider: 11/08/24 17:38 Arrival date/time: 11/08/24 17:30 49-year-old female reports with complaints of bilateral ear pain and that is causing a headache that she has had for 24 hours. Patient states she gets frequent ear infection is concerned that she may have an ear infection. She denies changes or loss of hearing discharge from ears fevers chills dizziness blurred vision ringing in ears nausea or vomiting. Patient states that she typically takes aspirin for the pain as she is not allergic to it but she is out and is asking for an aspirin at her visit today Limitations: no limitations Related Data Home Medications ?Medication ?Instructions ?Recorded ?Confirmed omeprazole 20 mg tablet,delayed 20 mg PO QDAY 04/11/19 09/18/20 release paroxetine HCl 20 mg tablet 20 mg PO QDAY 04/11/19 09/18/20 Previous Rx's ?Medication ?Instructions ?Recorded acetaminophen 650 mg 650 mg PO Q8H PRN fever or pain 03/04/21 tablet,extended release #30 tabs acetaminophen 650 mg 650 mg PO Q8H #30 tabs 05/27/21 tablet,extended release (Tylenol Arthritis Pain) cyclobenzaprine 10 mg tablet 10 mg PO HS #10 tabs 09/16/21 psyllium 1 tbsp PO QDAY #300 grams 10/29/21 acetaminophen 500 mg capsule 1,000 mg (2 x 500 mg) PO Q8HR PRN 03/26/22 pain #60 caps acetaminophen 500 mg tablet 1,000 mg (2 x 500 mg) PO Q6H PRN 07/27/22 pain #30 tabs cyclobenzaprine 10 mg tablet 10 mg PO HS PRN muscle spasm #10 07/27/22 tabs albuterol sulfate 90 mcg/actuation 2 inh inhalation Q6H PRN shortness 03/03/24 breath activated powder inhaler of breath or wheezing #1 ea (ProAir RespiClick) acetaminophen 500 mg capsule 500 mg PO Q6H PRN pain #30 caps 04/11/24 metoclopramide HCl 10 mg tablet 10 mg PO Q6H PRN nausea and 05/04/24 (Reglan) vomiting #30 tabs famotidine 20 mg tablet (Pepcid) 20 mg PO BID #14 tabs 09/28/24 polyethylene glycol 3350 17 4 g PO QDAY PRN constipation #476 10/13/24 gram/dose oral powder (Miralax) grams cephalexin 500 mg capsule 500 mg PO Q8H #30 caps 10/22/24 famotidine 20 mg tablet 20 mg PO BID #60 tabs 10/22/24 omeprazole 20 mg capsule,delayed 20 mg PO QDAY #30 caps 10/22/24 release ondansetron 4 mg disintegrating 4 mg PO Q8H PRN nausea and 10/22/24 tablet vomiting #20 tabs Allergies Allergy/AdvReac Type Severity Reaction Status Date / Time hydrocodone Allergy Severe ITCH Verified 11/08/24 17:33 ibuprofen Allergy Severe RASH Verified 11/08/24 17:33 Review of Systems Constitutional Constitutional: Denies chills, Denies fever(s) and Denies headache(s) ENT Ears, Nose, Mouth, and Throat: Denies dental pain, Denies disequilibrium, Denies ear discharge, Reports otalgia, Denies epistaxis, Denies facial pain, Denies headache(s) and Denies mouth pain Integumentary/Breasts Skin/Breast: Denies unusual bruising and Denies wounds Neurologic Neurologic: Denies disequilibrium and Denies headache(s) Past Medical History Past Medical History NEUROLOGIC: Negative Neurological Disorders or Seizures CARDIAC: Negative Cardiac Disorders or Congestive Heart Failure RESPIRATORY: Positive Pneumonia; Negative Chronic Obstructive Pulmonary Disease (COPD) or Asthma GASTROINTESTINAL: Positive Gastrointestinal Disorders, Ulcer and Gastroesophageal Reflux Disease GENITOURINARY: Negative Genitourinary Disorders or Renal Disease REPRODUCTIVE: Positive Previous Pregnancies MUSCULOSKELETAL: Positive Musculoskeletal Disorders and Arthritis ENDOCRINE: Negative Endocrine Disorders, Diabetes Mellitus Type 1 or Diabetes Mellitus Type 2 HEMATOLOGIC: Positive Blood Disorders and Anemia; Negative Sickle Cell Disease or Clotting Problems PSYCHO/SOCIAL: Positive Depression OTHER HISTORY: Positive Chicken Pox; Negative Hospitalization, Shingles, Falls, Blood Transfusions, Anesthesia Reactions or Cancer Family History FAMILY HISTORY: Negative Family Respiratory Disorders, Family Cardiac Disorders, Family Cancer or Family Anesthesia Reaction Surgical History SURGICAL: Positive Arthroscopy (rt knee), Tubal Ligation and Section Social History SMOKING STATUS: Never smoker SUBSTANCE USE: does not use ED Exam General Limitations: Present no limitations General appearance: Present alert and in no apparent distress Head Head exam: Present atraumatic Eye Eye exam: Present normal appearance, PERRL and EOMI ENT ENT exam: Present normal exam, normal oropharynx, mucous membranes moist, TM's normal bilaterally and normal external ear exam Neck Neck exam: Present normal inspection, full ROM and trachea midline Neurological Exam Neurological exam: Present alert, oriented X3 and CN II-XII intact Psychiatric Psychiatric exam: Present normal affect and normal mood Skin Skin exam: Present warm, dry, intact and normal color Course Quality Measures none Orders Category Date Time Status Aspirin Med 11/08/24 17:56 Once 325 mg PO X1 ONE Vital Signs Vital signs: Vital Signs Temperature 98.5 F 11/08/24 17:45 Pulse Rate 64 11/08/24 17:45 Respiratory Rate 16 11/08/24 17:45 Blood Pressure 114/77 11/08/24 17:45 Pulse Oximetry (%) 96 11/08/24 17:45 Oxygen Delivery Method Room Air 11/08/24 17:45 Ear Patient data External records reviewed:: None Clinical information provided by:: patient Social determinants that could affect healthcare access:: none Patient has the following chronic illnesses:: none How is presenting disease/condition affected by chronic disease/condition?: no chronic disease Evaluation data The following diagnostics were reviewed and interpreted by me:: other (specify) (none) Lab and/or radiology exams considered but not ordered:: n/a Interpretation Summary: n/a Medications / Prescriptions Medications or Prescriptions considered but not ordered:: none Medication administrations:: Medication Administration History Aspirin (Aspirin 325 Mg Tablet) 325 mg PO X1 ONE Stop: 11/08/24 17:57 as above Consultations Consultation(s) initiated? (list below): No Diagnosis Most likely diagnosis given after review of the tests above:: Ear pain bilateral Admission Indicated Admission indicated?: not indicated Admission Request Was there a request for admission?: No Disposition Plan Disposition Plan: Discharge Discharge Attestation Discharge Attestation: The patient and all family members were given an opportunity to ask questions and understood the discharge instructions. Discharge instructions specifically effects, indications for sooner follow up or return to the emergency department, and the expected course of current diagnosis. Patient condition: Stable Discharge Plan Plan Patient Disposition: HOME (Self Care) Prescriptions/Referrals Prescriptions/Med Rec: No Action paroxetine HCl 20 mg tablet 20 mg PO QDAY Patient Comments: TAKE ONE TABLET BY MOUTH EVERY MORNING omeprazole 20 mg tablet,delayed release (DR/EC) 20 mg PO QDAY Patient Comments: TAKE ONE TABLET BY MOUTH EVERY DAY HEARTBURN GASTRIC ACIDITY acetaminophen [Tylenol Arthritis Pain] 650 mg tablet extended release 650 mg PO Q8H Qty: 30 0RF acetaminophen 650 mg tablet extended release 650 mg PO Q8H PRN (Reason: fever or pain) Qty: 30 0RF Rx Instructions: swallow whole; do not chew/break/dissolve/open cyclobenzaprine 10 mg tablet 10 mg PO HS Qty: 10 0RF psyllium Powder 1 tbsp PO QDAY Qty: 300 0RF Rx Instructions: mix into at least 8 oz of water or juice before administering acetaminophen 500 mg capsule 1,000 mg PO Q8HR PRN (Reason: pain) Qty: 60 0RF ProAir RespiClick 90 mcg/actuation aerosol powdr breath activated 2 inh inhalation Q6H PRN (Reason: shortness of breath or wheezing) Qty: 1 0RF acetaminophen 500 mg capsule 500 mg PO Q6H PRN (Reason: pain) Qty: 30 0RF metoclopramide HCl [Reglan] 10 mg tablet 10 mg PO Q6H PRN (Reason: nausea and vomiting) Qty: 30 0RF famotidine [Pepcid] 20 mg tablet 20 mg PO BID Qty: 14 0RF polyethylene glycol 3350 [Miralax] 17 gram/dose powder 4 g PO QDAY PRN (Reason: constipation) Qty: 476 0RF famotidine 20 mg tablet 20 mg PO BID Qty: 60 0RF cephalexin 500 mg capsule 500 mg PO Q8H Qty: 30 0RF omeprazole 20 mg capsule,delayed release(DR/EC) 20 mg PO QDAY Qty: 30 0RF ondansetron 4 mg tablet,disintegrating 4 mg PO Q8H PRN (Reason: nausea and vomiting) Qty: 20 0RF acetaminophen 500 mg tablet 1,000 mg PO Q6H PRN (Reason: pain) Qty: 30 0RF cyclobenzaprine 10 mg tablet 10 mg PO HS PRN (Reason: muscle spasm) Qty: 10 0RF Problem List Clinical Impression: Acute ear pain Patient/Caregiver Discharge Instructions Discharge Activity: activity as tolerated Education Materials: ED Earache Without Infection (Adult) Additional Instructions: You may want to consider taking medications such as Sudafed or Benadryl for some relief hydrate well follow with your primary care provider if no improvement in 3 days Print Language: Slovak Stand Alone Forms: Mary Award Info., Patient Portal Info Letter
== END 2024-11-08 18:28 | disposition home or self-care (01) ==
LOC: SERX 18:13
PROVIDERS: Emergency Provider Emergency Medicine; PCP Physician Assistant
DX: H92.03 Otalgia, bilateral (principal)
CPT/HCPCS: 99282; A9270

== ENCOUNTER 2025-01-22 14:10 | Emergency (ER) | payer MEDICAID, SELFPAY ==
[2025-01-22 14:34] VITALS: BP 112/70; PULSE 93; RESP 20; TEMP 36.8; O2SAT 97
--- NOTE | 2025-01-22 14:40 | PD.EDFMALE ---
ED Female Urogenital RME/HPI General Chief complaint: Urogenital-Female Stated complaint: PAIN ON URINATION; BACK PAIN 10/25 Time Seen by Provider: 01/22/25 14:13 Arrival date/time: 01/22/25 14:10 59-year-old female reports with complaints of dysuria urinary urgency and frequency and back pain x 3 days. Patient states that she has been taken [id number] medications with no improvement of symptoms. She denies hematuria fevers chills abdominal pain nausea or vomiting Limitations: no limitations Related Data Home Medications ?Medication ?Instructions ?Recorded ?Confirmed omeprazole 20 mg tablet,delayed 20 mg PO QDAY 04/11/19 09/18/20 release paroxetine HCl 20 mg tablet 20 mg PO QDAY 04/11/19 09/18/20 Previous Rx's ?Medication ?Instructions ?Recorded acetaminophen 650 mg 650 mg PO Q8H PRN fever or pain 03/04/21 tablet,extended release #30 tabs acetaminophen 650 mg 650 mg PO Q8H #30 tabs 05/27/21 tablet,extended release (Tylenol Arthritis Pain) cyclobenzaprine 10 mg tablet 10 mg PO HS #10 tabs 09/16/21 psyllium 1 tbsp PO QDAY #300 grams 10/29/21 acetaminophen 500 mg capsule 1,000 mg (2 x 500 mg) PO Q8HR PRN 03/26/22 pain #60 caps acetaminophen 500 mg tablet 1,000 mg (2 x 500 mg) PO Q6H PRN 07/27/22 pain #30 tabs cyclobenzaprine 10 mg tablet 10 mg PO HS PRN muscle spasm #10 07/27/22 tabs albuterol sulfate 90 mcg/actuation 2 inh inhalation Q6H PRN shortness 03/03/24 breath activated powder inhaler of breath or wheezing #1 ea (ProAir RespiClick) acetaminophen 500 mg capsule 500 mg PO Q6H PRN pain #30 caps 04/11/24 metoclopramide HCl 10 mg tablet 10 mg PO Q6H PRN nausea and 05/04/24 (Reglan) vomiting #30 tabs famotidine 20 mg tablet (Pepcid) 20 mg PO BID #14 tabs 09/28/24 polyethylene glycol 3350 17 4 g PO QDAY PRN constipation #476 10/13/24 gram/dose oral powder (Miralax) grams cephalexin 500 mg capsule 500 mg PO Q8H #30 caps 10/22/24 famotidine 20 mg tablet 20 mg PO BID #60 tabs 10/22/24 omeprazole 20 mg capsule,delayed 20 mg PO QDAY #30 caps 10/22/24 release ondansetron 4 mg disintegrating 4 mg PO Q8H PRN nausea and 10/22/24 tablet vomiting #20 tabs ciprofloxacin HCl 500 mg tablet 500 mg PO BID 10 days #20 tabs 01/22/25 (Cipro) phenazopyridine 200 mg tablet 200 mg PO Q8H PRN pain #9 tabs 01/22/25 (Pyridium) Allergies Allergy/AdvReac Type Severity Reaction Status Date / Time hydrocodone Allergy Severe ITCH Verified 01/22/25 14:13 ibuprofen Allergy Severe RASH Verified 01/22/25 14:13 Review of Systems Constitutional Constitutional: Denies chills, Denies fever(s) and Denies headache(s) ENT Ears, Nose, Mouth, and Throat: Denies dizziness and Denies headache(s) Cardiovascular Cardiovascular: Denies chest pain and Denies dyspnea Respiratory Respiratory: Denies cough and Denies dyspnea Gastrointestinal Gastrointestinal: Denies nausea and Denies vomiting Genitourinary Genitourinary: Reports dysuria, Reports urinary urgency and Reports other (Urinary frequency) Musculoskeletal Musculoskeletal: Reports back pain and Denies myalgias Integumentary/Breasts Skin/Breast: Denies lesions and Denies rash Neurologic Neurologic: Denies dizziness and Denies headache(s) Past Medical History Past Medical History NEUROLOGIC: Negative Neurological Disorders or Seizures CARDIAC: Negative Cardiac Disorders or Congestive Heart Failure RESPIRATORY: Positive Pneumonia; Negative Chronic Obstructive Pulmonary Disease (COPD) or Asthma GASTROINTESTINAL: Positive Gastrointestinal Disorders, Ulcer and Gastroesophageal Reflux Disease GENITOURINARY: Negative Genitourinary Disorders or Renal Disease REPRODUCTIVE: Positive Previous Pregnancies MUSCULOSKELETAL: Positive Musculoskeletal Disorders and Arthritis ENDOCRINE: Negative Endocrine Disorders, Diabetes Mellitus Type 1 or Diabetes Mellitus Type 2 HEMATOLOGIC: Positive Blood Disorders and Anemia; Negative Sickle Cell Disease or Clotting Problems PSYCHO/SOCIAL: Positive Depression OTHER HISTORY: Positive Chicken Pox; Negative Hospitalization, Shingles, Falls, Blood Transfusions, Anesthesia Reactions or Cancer Family History FAMILY HISTORY: Negative Family Respiratory Disorders, Family Cardiac Disorders, Family Cancer or Family Anesthesia Reaction Surgical History SURGICAL: Positive Arthroscopy (rt knee), Tubal Ligation and Section Social History SMOKING STATUS: Never smoker SUBSTANCE USE: does not use ED Exam General Limitations: Present no limitations General appearance: Present alert and in no apparent distress Chest Chest inspection: Present normal inspection and symmetric chest wall rise Respiratory Respiratory exam: Present normal lung sounds bilaterally Cardiovascular Cardiovascular exam: Present regular rate, normal rhythm and normal heart sounds Abdominal Exam Abdominal exam: Present soft, tenderness and normal bowel sounds; Absent distention, guarding, rebound, mass or bruit Abdominal tenderness: Present suprapubic and moderate Back Exam Back exam: Present normal inspection, full ROM and CVA tenderness (L) (mid); Absent CVA tenderness (R) Neurological Exam Neurological exam: Present alert, oriented X3 and CN II-XII intact Psychiatric Psychiatric exam: Present normal affect and normal mood Skin Skin exam: Present warm, dry, intact and normal color Course Course Course Narrative: 59-year-old female reports with complaints of urinary symptoms. Patient's urine analysis indicative of acute cystitis however this sample was contaminated and a culture was not able to be sent. Patient is unable to provide a second urine sample therefore she will be sent home on oral antibiotics but advised that if symptoms does not resolve within 3 days with the medication she should follow-up with her primary care provider where a second culture can be obtained and treatment can be changed Quality Measures none Orders Category Date Time Status UA, C/S IF [Urinalysis, C/S if Indicated] Stat Lab 01/22/25 15:00 Completed Vital Signs Vital signs: Vital Signs Temperature 98.3 F 01/22/25 14:34 Pulse Rate 93 01/22/25 14:34 Respiratory Rate 20 01/22/25 14:34 Blood Pressure 112/70 01/22/25 14:34 Pulse Oximetry (%) 97 01/22/25 14:34 Oxygen Delivery Method Room Air 01/22/25 14:34 Urogenital - Female Patient data External records reviewed:: None Clinical information provided by:: patient Social determinants that could affect healthcare access:: none Patient has the following chronic illnesses:: none How is presenting disease/condition affected by chronic disease/condition?: no chronic disease Evaluation data The following diagnostics were reviewed and interpreted by me:: lab results Lab and/or radiology exams considered but not ordered:: none Interpretation Summary: Urine analysis indicative of acute cystitis Medications / Prescriptions Medications or Prescriptions considered but not ordered:: None Medication administrations:: Rocephin 1 g IM Consultations Consultation(s) initiated? (list below): No Diagnosis Urogenital Female Differential Diagnosis: urinary tract infection, vaginitis and cystitis Most likely diagnosis given after review of the tests above:: Acute cystitis Admission Indicated Admission indicated?: not indicated Admission Request Was there a request for admission?: No Disposition Plan Disposition Plan: Discharge Discharge Attestation Discharge Attestation: The patient and all family members were given an opportunity to ask questions and understood the discharge instructions. Discharge instructions specifically effects, indications for sooner follow up or return to the emergency department, and the expected course of current diagnosis. Patient condition: Stable Discharge Plan Plan Patient Disposition: HOME (Self Care) Prescriptions/Referrals Prescriptions/Med Rec: New ciprofloxacin HCl [Cipro] 500 mg tablet 500 mg PO BID 10 Days Qty: 20 0RF phenazopyridine [Pyridium] 200 mg tablet 200 mg PO Q8H PRN (Reason: pain) Qty: 9 0RF No Action paroxetine HCl 20 mg tablet 20 mg PO QDAY Patient Comments: TAKE ONE TABLET BY MOUTH EVERY MORNING omeprazole 20 mg tablet,delayed release (DR/EC) 20 mg PO QDAY Patient Comments: TAKE ONE TABLET BY MOUTH EVERY DAY HEARTBURN GASTRIC ACIDITY acetaminophen [Tylenol Arthritis Pain] 650 mg tablet extended release 650 mg PO Q8H Qty: 30 0RF acetaminophen 650 mg tablet extended release 650 mg PO Q8H PRN (Reason: fever or pain) Qty: 30 0RF Rx Instructions: swallow whole; do not chew/break/dissolve/open cyclobenzaprine 10 mg tablet 10 mg PO HS Qty: 10 0RF psyllium Powder 1 tbsp PO QDAY Qty: 300 0RF Rx Instructions: mix into at least 8 oz of water or juice before administering acetaminophen 500 mg capsule 1,000 mg PO Q8HR PRN (Reason: pain) Qty: 60 0RF ProAir RespiClick 90 mcg/actuation aerosol powdr breath activated 2 inh inhalation Q6H PRN (Reason: shortness of breath or wheezing) Qty: 1 0RF acetaminophen 500 mg capsule 500 mg PO Q6H PRN (Reason: pain) Qty: 30 0RF metoclopramide HCl [Reglan] 10 mg tablet 10 mg PO Q6H PRN (Reason: nausea and vomiting) Qty: 30 0RF famotidine [Pepcid] 20 mg tablet 20 mg PO BID Qty: 14 0RF polyethylene glycol 3350 [Miralax] 17 gram/dose powder 4 g PO QDAY PRN (Reason: constipation) Qty: 476 0RF famotidine 20 mg tablet 20 mg PO BID Qty: 60 0RF cephalexin 500 mg capsule 500 mg PO Q8H Qty: 30 0RF omeprazole 20 mg capsule,delayed release(DR/EC) 20 mg PO QDAY Qty: 30 0RF ondansetron 4 mg tablet,disintegrating 4 mg PO Q8H PRN (Reason: nausea and vomiting) Qty: 20 0RF acetaminophen 500 mg tablet 1,000 mg PO Q6H PRN (Reason: pain) Qty: 30 0RF cyclobenzaprine 10 mg tablet 10 mg PO HS PRN (Reason: muscle spasm) Qty: 10 0RF Problem List Clinical Impression: Acute cystitis Patient/Caregiver Discharge Instructions Education Materials: ED CYSTITIS Female Adult Additional Instructions: Take antibiotics as directed and pain medication as directed and needed follow-up with your primary care provider if symptoms does not improve in 3 days 50 use of medication. Be sure to drink lots of water Print Language: Turkmen Stand Alone Forms: Mary Award Info., Patient Portal Info Letter
[2025-01-22 15:11] LABS: Collection Type, Urine Clean Catch
[2025-01-22 15:21] LABS: Bacteria,Urine Rare; Bilirubin,Urine Negative (Negative); Blood,Urine Trace (Negative); Budding Yeast,Urine Present; Clarity,Urine Turbid (Clear/Hazy); Color,Urine Yellow (Lt Yel-Yel); Culture Indicated,Urine Contaminated; Glucose, Urine Negative (Negative); Ketones,Urine 1+ (Negative); Leukocyte Esterase,Urine Positive (Negative); Nitrite,Urine Negative (Negative); PH,Urine 5.5 (5.0-7.0); Protein,Urine 1+ (Neg - Trace); RBC,Urine 25 /hpf (0-3); Specific Gravity,Urine 1.029 (1.001-1.035); Squamous Epithelial Cell,Urine 18 /hpf (0-5); Urobilinogen,Urine 3.0 mg/dL (0.0-1.0); WBC,Urine 271 /hpf (0-5)
[2025-01-22] MEDS: PHENAZOPYRIDINE HCL 100 MG TABLET 200 MG PO (15:51)
== END 2025-01-22 16:02 | disposition home or self-care (01) ==
LOC: SERX 16:19
PROVIDERS: Physician Assistant; Emergency Provider Emergency Medicine
DX: N30.00 Acute cystitis without hematuria (principal)
CPT/HCPCS: 81001; 96372; 99283; J0696; J3490; A9270